=== PATIENT | female | born 2000 | race Caucasian/White ===

== ENCOUNTER 2024-07-05 19:55 | Emergency (ER) | payer MEDICAID, SELFPAY ==
[2024-07-05 20:18] VITALS: BP 108/68; PULSE 71; RESP 18; TEMP 36.8; O2SAT 99
--- NOTE | 2024-07-05 20:54 | ED.GENADULT ---
HPI - General Adult General Time Seen by Provider: 20:54 Date Seen: 07/05/24 Chief complaint: Nausea/Vomiting Stated complaint: 5 weeks , vomiting Time Seen by Provider: 07/05/24 20:53 Source: patient, family, RN notes reviewed and official court interpreter Mode of arrival: ambulatory Limitations: no limitations History of Present Illness HPI narrative: Rekha is a very sweet 23-year-old at approximately 7 weeks who comes to the emergency room for evaluation of vomiting. Rekha notes that she has been vomiting for approximately 2 weeks. However, today she has been vomiting throughout the day and has been unable to keep food or fluid down. She notes that she has discomfort in her stomach and shows this to be the epigastrium. She has not had fever or chills. She notes no dysuria hematuria or lower abdominal pain and has not had any vaginal bleeding. She is very excited for her 1st baby. She has not yet seen OB. She is hoping for some IV fluids. She is otherwise a healthy individual. Review of Systems Status of ROS: Reports: 10 or more systems reviewed and unremarkable except as noted in History and below Const: Denies: fever or chills ENMT: Denies: throat swelling, difficulty swallowing or nasal congestion Cardio: Denies: chest pain, swelling of feet/ankles, lightheadedness or shortness of breath with exertion Resp: Denies: shortness of breath or cough GI: Reports: abdominal pain, nausea and vomiting; Denies: diarrhea, constipation or difficulty swallowing : Denies: painful urination Musculo: Denies: back pain Neuro: Denies: headache Allergy/Immuno: Denies: throat swelling PFSH PFS Social History Smoking Status: Never smoker Do you use any of these nicotine containing products: None Second hand tobacco smoke exposure: No How often do you have a drink containing alcohol: never How often do you have six or more drinks on one occasion: Never AUDIT-C Alcohol total score: 0 Non-prescribed substance use: denies use service: No Exam Narrative: Exam Narrative: Rekha is alert and oriented. Initial interview with the assistance of an official court interpreter. External ears eyes nose clear. While her lips are dry she does have moist mucous membranes. She is speaking normally. Neck is supple. Heart with a regular rate and rhythm and lungs are clear bilaterally. Patient has some mild epigastric discomfort. No pain in the right upper quadrant or pelvic area lower abdomen with palpation. Const: Vital Signs, click to edit/add: Vital Signs - 24 hr 07/05/24 20:18 Temperature 98.2 F Pulse Rate [Pulse Oximeter] 71 Respiratory Rate 18 Blood Pressure [Ri ght Upper Arm] 108/68 Pulse Oximetry 99 Oxygen Delivery Me thod Room Air Documenting provider has reviewed patient's vital signs: yes Course Course ED Course: Given Rekha appearance I do wish to try oral Zofran and oral hydration. At this time there is a nationwide shortage of fluids. Patient is presenting here tonight with no evidence of tachycardia hypotension or toxicity. She agrees to this plan. Zofran 4 mg ODT is given. Would like her to wait 10 minutes and then try some fluids. Differential diagnosis with vomiting can be gastroenteritis although she has no fever chills recent ill contacts or diarrhea. Must also consider biliary colic but her pain is epigastric and not right upper quadrant. Again she has no fever. Will plan on labs IV insertion if she does not improve after oral Zofran. Reevaluation(s) Reevaluation #1: Patient successfully had 2 glasses of fluids as well as 2 popsicles. I then went and found some chips and Cheerios for her and she has been eating these without difficulty. Vital Signs Vital signs: Initial Vital Signs Temperature 98.2 F 07/05/24 20:18 Temperature Source Temporal Artery Scan 07/05/24 20:18 Pulse Rate 71 07/05/24 20:18 Pulse Rhythm Regular 07/05/24 20:18 Pulse Strength 3+ Normal 07/05/24 20:18 Respiratory Rate 18 07/05/24 20:18 Blood Pressure 108/68 07/05/24 20:18 Blood Pressure Mean 81 07/05/24 20:18 Blood Pressure Position Sitting 07/05/24 20:18 Pulse Oximetry 99 07/05/24 20:18 Oxygen Delivery Method Room Air 07/05/24 20:18 Vital Signs Temperature 98.2 F 07/05/24 20:18 Pulse Rate 71 07/05/24 20:18 Respiratory Rate 18 07/05/24 20:18 Blood Pressure 108/68 07/05/24 20:18 Pulse Oximetry 99 07/05/24 20:18 Oxygen Delivery Method Room Air 07/05/24 20:18 Temperature 98.2 F 07/05/24 20:18 Pulse Rate 71 07/05/24 20:18 Respiratory Rate 18 07/05/24 20:18 Blood Pressure 108/68 07/05/24 20:18 Pulse Oximetry 99 07/05/24 20:18 Oxygen Delivery Method Room Air 07/05/24 20:18 Medications Administered Medications: Discontinued Medications Generic Name Dose Route Start Last Admin Trade Name Fawn PRN Reason Stop Dose Admin Ondansetron HCl 4 mg 07/05/24 21:38 07/05/24 21:43 Ondansetron Odt 4 Mg Tab PO 07/05/24 21:39 4 mg ONCE ONE Administration Medical Decision Making MDM Narrative Medical decision making narrative: 1. Nausea vomiting in -patient remarkably improved after oral Zofran and fluids. Have created a prescription in [employer] for Zofran 4 mg ODT q.8 hours p.r.n. nausea or vomiting 10. Tonight we did use the will to note that her due date is February 20. She is very excited about this. I have asked her to try to push fluids and food as much as possible. It is important not to let her stomach it completely empty and I do suggest keeping cereal or crackers by her bedside. Of course should she have worsening symptoms she can return for further evaluation. Fortunately she is feeling much improved at this time is smiling as she is eating and drinking. 2. Disposition-home at this time. Return as needed. Discharge Plan Discharge Clinical Impression: Nausea and vomiting during Additional Instructions: Zofran may be used every 8 hours if needed for nausea. Do your best to not let your stomach be empty which seems to increase nausea and vomiting. Try to keep crackers or serial by the side of your bed. Try to eat a little bit all the time. Push fluids as much as possible. Return as needed Follow Up/Referrals: Aaliyah Gary MD [Staff Physician] - Stand Alone Forms: [employer] Info Instructions
[2024-07-05] MEDS: ONDANSETRON ODT 4 MG TAB PO (21:43)
== END 2024-07-05 22:52 | disposition home or self-care (01) ==
PROVIDERS: Emergency Provider Family Medicine
DX: O21.9 Vomiting of pregnancy, unspecified (principal); Z3A.01 Less than 8 weeks gestation of pregnancy
CPT/HCPCS: 99283; 99284; A9270

== ENCOUNTER 2024-07-17 21:30 | Emergency (ER) | payer MEDICAID, SELFPAY ==
[2024-07-17 21:46] VITALS: BP 112/75; PULSE 60; RESP 16; TEMP 36.7; O2SAT 99
--- NOTE | 2024-07-17 22:12 | ED.NAVMDI ---
HPI - Nausea/Vomiting/Diarrhea General Date Seen: 07/17/24 Chief complaint: Nausea/Vomiting Stated complaint: 7wks , zofran refill Time Seen by Provider: 07/17/24 21:33 Source: patient and family Mode of arrival: ambulatory Limitations: no limitations History of Present Illness HPI Narrative: This pleasant 23-year-old at approximately 8+ weeks gestation presents here with nausea vomiting she was seen almost 2 weeks ago here, given Zofran and run out of that, she says she has severe nausea vomiting if she is not taking it, she vomits up approximately 5 times a day. She describes unable to keep fluids down but is able this drink somewhat. She has some mild discomfort in her stomach, she notes with this. She is not throwing up any blood, she has had no vaginal bleeding, she denies any dysuria frequency so associated with this. She has not yet seen Ob but has an appointment on July 21. She describes herself as otherwise healthy on no chronic medications, MD elicited complaint: nausea and vomiting Related Data Previous Rx's ?Medication ?Instructions ?Recorded ondansetron 4 mg disintegrating 4 mg PO Q12H PRN nausea and 07/17/24 tablet vomiting 4 days #10 tabs Allergies Allergy/AdvReac Type Severity Reaction Status Date / Time No Known Drug Allergies Allergy Verified 07/16/24 13:45 Review of Systems Status of ROS: Reports: 10 or more systems reviewed and unremarkable except as noted in History and below [facility] Social History Smoking Status: Never smoker Do you use any of these nicotine containing products: None Second hand tobacco smoke exposure: No How often do you have a drink containing alcohol: never How often do you have six or more drinks on one occasion: Never AUDIT-C Alcohol total score: 0 Non-prescribed substance use: denies use service: No Exam Narrative: Exam Narrative: On examination in room 1 she is in no apparent distress she has normal vital signs. Her abdomen shows a non gravid abdomen, with absolutely no tenderness anywhere in her abdomen her bowel sounds are normal, there is no organomegaly, with the ultrasound I am able to say Tariq , with a heart rate of approximately 160. Within the uterus. She has a good window through her bladder noted. Const: Vital Signs, click to edit/add: Vital Signs - 24 hr 07/17/24 21:46 Temperature 98.0 F Pulse Rate [Left P ulse Oximeter] 60 Respiratory Rate 16 Blood Pressure [Ri ght Upper Arm] 112/75 Pulse Oximetry 99 Oxygen Delivery Me thod Room Air Documenting provider has reviewed patient's vital signs: yes Course Vital Signs Vital signs: Initial Vital Signs Temperature 98.0 F 07/17/24 21:46 Temperature Source Temporal Artery Scan 07/17/24 21:46 Pulse Rate 60 07/17/24 21:46 Pulse Rhythm Regular 07/17/24 21:46 Respiratory Rate 16 07/17/24 21:46 Blood Pressure 112/75 07/17/24 21:46 Blood Pressure Mean 87 07/17/24 21:46 Blood Pressure Position Sitting 07/17/24 21:46 Pulse Oximetry 99 07/17/24 21:46 Oxygen Delivery Method Room Air 07/17/24 21:46 Vital Signs Temperature 98.0 F 07/17/24 21:46 Pulse Rate 60 07/17/24 21:46 Respiratory Rate 16 07/17/24 21:46 Blood Pressure 112/75 07/17/24 21:46 Pulse Oximetry 99 07/17/24 21:46 Oxygen Delivery Method Room Air 07/17/24 21:46 Temperature 98.0 F 07/17/24 21:46 Pulse Rate 60 07/17/24 21:46 Respiratory Rate 16 07/17/24 21:46 Blood Pressure 112/75 07/17/24 21:46 Pulse Oximetry 99 07/17/24 21:46 Oxygen Delivery Method Room Air 07/17/24 21:46 Medications Administered Medications: Discontinued Medications Generic Name Dose Route Start Last Admin Trade Name Freq PRN Reason Stop Dose Admin Ondansetron HCl 4 mg 07/17/24 22:03 07/17/24 22:22 Ondansetron Odt 4 Mg Tab PO 07/17/24 22:04 4 mg ONCE ONE Administration MDM - Nausea/Vomiting/Diarrhea MDM Narrative Medical decision making narrative: Differential diagnosis includes but is not limited to viral gastroenteritis, drug food poisoning, pyloric stenosis, gastritis, pancreatitis, hepatitis, cholecystitis, appendicitis, bowel obstruction, hyperemesis, cyclic vomiting syndrome, bulimia nervosa, migraine headache, motion sickness and medication side effect. These include the life threatening complications of appendicitis, drug food poisoning and bowel obstruction. Medical Records Attestation: I reviewed the patient's medical records. Lab Data Attestation: I reviewed the patient's lab results. Labs: Lab Results 07/17/24 Range/Units 21:55 Urine Color Yellow (Yellow) Urine Appearance Cloudy A (Clear) Urine pH 7.0 (5.0-8.5) Ur Specific [place] 1.025 (1.000-1.030) Urine Protein Trace A (Negative) Urine Glucose (UA) Negative (Negative) Urine Ketones 2+ A (Negative) Urine Blood Negative (Negative) Urine Nitrite Negative (Negative) Urine Bilirubin Negative (Negative) Urine Urobilinogen 0.2 (0.2-1.0) Ur Leukocyte Esterase Negative (Negative) Urine RBC 0-2 (0-2) Urine WBC 2-5 (0-5) Ur Squamous Epith Cells None (None-Few) Amorphous Sediment Many A (None) Urine Bacteria Few A (None) Urine returned showing no evidence of infection, 2+ ketones were characteristic of the hyperemesis, she felt much better after she received the Zofran. Discharge Plan Discharge Clinical Impression: Nausea and vomiting during Patient Disposition: Home w/ Parent or Adult Condition: Stable Instructions: Nausea and Vomiting in (ED), Hyperemesis Gravidarum (ED) Additional Instructions: Home rest continue medications, prescription through instymeds given. Follow-up with OB. Return as needed for increasing abdominal pain vaginal bleeding other issue Prescriptions: New ondansetron 4 mg tablet,disintegrating 4 mg PO Q12H PRN (Reason: nausea and vomiting) 4 Days Qty: 10 0RF Follow Up/Referrals: Provider,Not a Local [Primary Care Provider] - Stand Alone Forms: How do you roll? Info Instructions
[2024-07-17 22:15] LABS: Appearance Urine Cloudy (Clear); Bilirubin Urine Negative (Negative); Blood Urine Negative (Negative); Color Urine Yellow (Yellow); Glucose Urine Negative (Negative); Ketones Urine 2+ (Negative); Leukocyte Esterase Urine Negative (Negative); Nitrite Urine Negative (Negative); Protein Urine Trace (Negative); Specific Gravity Urine 1.025 (1.000-1.030); Urobilinogen Urine 0.2 (0.2-1.0)
[2024-07-17] MEDS: ONDANSETRON ODT 4 MG TAB PO (22:22)
[2024-07-17 22:24] LABS: Amorphous Sediment Urine Many; Bacteria Urine Few; RBC Urine 0-2 (0-2)
== END 2024-07-17 22:34 | disposition home or self-care (01) ==
PROVIDERS: Emergency Provider Family Medicine
DX: R11.2 Nausea with vomiting, unspecified (principal); Z3A.08 8 weeks gestation of pregnancy
CPT/HCPCS: 81001; 87086; 99283; A9270

== ENCOUNTER 2024-07-21 07:16 | Outpatient (CLI) | payer MEDICAID, SELFPAY ==
--- NOTE | 2024-07-21 07:15 | US_ITS ---
Patient: SUSAN VENCES Facility:?[facility] Patient ID:?[id number] Site Patient ID:?[id number]. Site :?[id number] Study:?US-OB Pelvis Dating and Viability-07/21/2024 8:27:30 AM Ordering Physician:Candelaria Carmona Final Report: INDICATION: Check viability and dates TECHNIQUE: Transabdominal and transvaginal scanning was performed. Transvaginal scanning was performed to better evaluate the IUP and adnexa. Ovarian blood flow was evaluated with color-flow and pulsed Doppler. COMPARISON: None FINDINGS: There is a living IUP with gestational age of 9 weeks 3 days by LMP and 9 weeks by today`s crown-rump length. EDC based on today`s crown-rump length is 02/23/2025. The embryonic heart rate is measured at 181 beats per minute. The placenta is not yet formed. There appears to be a 1.6 x 1.2 x 0.9 cm subchorionic hemorrhage. The ovaries are normal in size and shape. The right ovary measures 2.9 x 2.0 x 2.0 cm and the left 2.4 x 2.4 x 1.8 cm. Ovarian blood flow is demonstrated with color-flow and pulsed Doppler. No adnexal mass or free fluid is apparent. IMPRESSION: 1. Living IUP with gestational age of 9 weeks by today`s crown-rump length and EDC of 02/23/2025. 2. Apparent 1.6 x 1.2 x 0.9 cm subchorionic hemorrhage. Dictated by Wesly Leonardo MD @ 07/21/2024 1:20:47 PM Signed by:?Wesly Leonardo MD @07/21/2024 1:20:47 PM (Electronic Signature)
== END 2024-07-21 07:17 | disposition home or self-care (01) ==
PROVIDERS: Visit Provider Registered Nurse
DX: Z34.91 Encounter for supervision of normal pregnancy, unspecified, first trimester (principal); O20.9 Hemorrhage in early pregnancy, unspecified; Z3A.09 9 weeks gestation of pregnancy
CPT/HCPCS: 76801; 76817; 76857; 83021; 86592; 86703; 86704; 86706; 86762; 86787; 86803; 86850; 86900; 86901; 87086; 87340; 87491; 87591; 88142; 96374; 99284; T1013; J2405; J7030

== ENCOUNTER 2024-07-21 09:06 | Outpatient (CLI) | payer MEDICAID, SELFPAY ==
[2024-07-21 13:22] LABS: Chlamydia DNA Amplified* NOT DETECTED (No Detected); GC DNA Amplified* NOT DETECTED (No Detected)
== END 2024-07-21 09:07 | disposition home or self-care (01) ==
PROVIDERS: Visit Provider Registered Nurse
DX: Z34.91 Encounter for supervision of normal pregnancy, unspecified, first trimester (principal); Z12.4 Encounter for screening for malignant neoplasm of cervix; Z3A.09 9 weeks gestation of pregnancy
CPT/HCPCS: 83021; 86592; 86703; 86704; 86706; 86762; 86787; 86803; 86850; 86900; 86901; 87086; 87340; 87491; 87591; 87624; 87625; 88141; 88142

== ENCOUNTER 2024-07-23 18:30 | Emergency (ER) | payer MEDICAID, SELFPAY ==
[2024-07-23 18:35] VITALS: BP 93/60; PULSE 68; RESP 16; TEMP 36.9; O2SAT 99
--- NOTE | 2024-07-23 18:53 | ED.NAVMDI ---
HPI - Nausea/Vomiting/Diarrhea General Chief complaint: Nausea/Vomiting Stated complaint: 2 mo , vomiting Time Seen by Provider: 07/23/24 18:41 History of Present Illness HPI Narrative: This 23-year-old female comes in reporting nausea and vomiting with some diffuse lower abdominal pain. She is 9 weeks and her nausea and vomiting seem to be related to her . She is not reporting any vaginal discharge. She is [place]-speaking but her friend is with her who interprets. They declined chemical supervisor services. Related Data Home Medications ?Medication ?Instructions ?Recorded ?Confirmed docosahexaenoic acid 200 mg mg PO 07/21/24 07/21/24 capsule ( DHA) Previous Rx's ?Medication ?Instructions ?Recorded ondansetron 4 mg disintegrating 4 mg PO Q12H PRN nausea and 07/17/24 tablet vomiting 4 days #10 tabs vitamin#30 30 mg iron-10 1 cap PO DAILY #90 caps 07/21/24 mg iron-folic acid 1 mg-omg3 capsule promethazine 25 mg tablet 12.5 - 25 mg (0.5 - 1 x 25 mg) PO 07/21/24 Q4-6H PRN nausea and vomiting #30 tabs Allergies Allergy/AdvReac Type Severity Reaction Status Date / Time No Known Drug Allergies Allergy Verified 07/21/24 08:29 Review of Systems Status of ROS: Reports: 10 or more systems reviewed and unremarkable except as noted in History and below Narrative: Constitutional: No fevers, no weight gain or loss. Eyes: No discharge. No vision changes. HENT: No congestion, no sore throat, no ear pain. Cardiovascular: No chest pain, no palpitations. Respiratory: No shortness of breath, no wheezes, no cough. Gastrointestinal: No diarrhea. Nausea and vomiting. Genitourinary: No dysuria, no hematuria. Musculoskeletal: Normal range of motion. Skin: No rashes, no pruritis. Neurological: No dizziness, weakness, sensory change, speech change. Endo/Heme/Allergies: No bruising or bleeding. No polydipsia. Pysch: no suicidality, no anxiety, no insomnia. All other systems reviewed and are negative. PFSH PFSH Social History Narrative: [place]-speaking What is your current living situation?: I presently have a place to live In the past 12 months, utilities in danger of being shut off: no In the past 12 mos, have been you worried that your food would run out before you had money to buy more?: never true In the past 12 mos, the food you bought just didn't last and you didn't have money to buy more?: never true Smoking Status: Never smoker Do you use any of these nicotine containing products: None Second hand tobacco smoke exposure: No How often do you have a drink containing alcohol: never How often do you have six or more drinks on one occasion: Never AUDIT-C Alcohol total score: 0 Non-prescribed substance use: denies use How often does anyone, including family, friends and others, physically hurt you: never How often does anyone, including family, friends and others, insult or talk down to you: never How often does anyone, including family, friends and others, threaten you with harm: never How often does anyone, including family, friends and others, scream or curse at you: never service: No Exam Narrative: Exam Narrative: Constitutional: Well-developed, well-nourished, no acute distress. HEENT: Normocephalic, atraumatic. Neck: Normal range of motion. Nontender. Supple. Heart: Regular. No murmurs. Normal rate. Intact distal pulses. Lungs: Clear to auscultation. No chest discomfort. No wheezes, rhonchi, or rales. Abdomen: Normal bowel sounds. No rebound tenderness. Mild tenderness in the lower abdomen. Genitalia: Deferred. Back: No midline tenderness. Normal range of motion. Extremities: Normal range of motion. No injury. Skin: Intact. No rash. Warm. No erythema or pallor. Neurologic: No altered sensation. No weakness. Alert and oriented. Psychiatric: No suicidality. No anxiety or depression. No insomnia. Nursing notes and vitals signs are reviewed. Const: Vital Signs, click to edit/add: Vital Signs - 24 hr 07/23/24 18:35 Temperature 98.4 F Pulse Rate [Pulse Oximeter] 68 Respiratory Rate 16 Blood Pressure [Ri ght Upper Arm] 93/60 Pulse Oximetry 99 Oxygen Delivery Me thod Room Air Course Vital Signs Vital signs: Initial Vital Signs Temperature 98.4 F 07/23/24 18:35 Temperature Source Temporal Artery Scan 07/23/24 18:35 Pulse Rate 68 07/23/24 18:35 Respiratory Rate 16 07/23/24 18:35 Blood Pressure 93/60 07/23/24 18:35 Blood Pressure Mean 71 07/23/24 18:35 Blood Pressure Position Sitting 07/23/24 18:35 Pulse Oximetry 99 07/23/24 18:35 Oxygen Delivery Method Room Air 07/23/24 18:35 Vital Signs Temperature 98.4 F 07/23/24 18:35 Pulse Rate 68 07/23/24 18:35 Respiratory Rate 16 07/23/24 18:35 Blood Pressure 93/60 07/23/24 18:35 Pulse Oximetry 99 07/23/24 18:35 Oxygen Delivery Method Room Air 07/23/24 18:35 Temperature 98.4 F 07/23/24 18:35 Pulse Rate 68 07/23/24 18:35 Respiratory Rate 16 07/23/24 18:35 Blood Pressure 93/60 07/23/24 18:35 Pulse Oximetry 99 07/23/24 18:35 Oxygen Delivery Method Room Air 07/23/24 18:35 Medications Administered Medications: Generic Name Dose Route Start Last Admin Trade Name Freq PRN Reason Stop Dose Admin Sodium Chloride 500 mls @ 500 mls/hr 07/23/24 18:51 07/23/24 19:07 0.9 % Sodium Chloride 500 Ml IV 07/23/24 19:50 500 mls/hr .Q1H ONE Administration Discontinued Medications Generic Name Dose Route Start Last Admin Trade Name Freq PRN Reason Stop Dose Admin Ondansetron HCl 4 mg 07/23/24 18:51 07/23/24 19:08 Ondansetron 2 Mg/Ml Inj IVP 07/23/24 18:52 4 mg ONCE ONE Administration MDM - Nausea/Vomiting/Diarrhea MDM Narrative Medical decision making narrative: This patient comes in with persistent nausea and vomiting related to . An IV was established where she received a L of normal saline and 4 mg of Zofran. This helped her feel better. She was reporting some lower abdominal pain but had normal exam and does not have any cramping or vaginal bleeding. She was reassured with bedside ultrasound views of her currently. She is okay to be discharged home. She states that she has both Zofran and Reglan to treat her nausea sym Discharge Plan Discharge Clinical Impression: Nausea and vomiting during Additional Instructions: Continue current plans. Use Zofran or Reglan as needed and directed for nausea symptoms. Follow up with MD return if worsening. Prescriptions: No Action DHA 200 mg capsule PO promethazine 25 mg tablet 12.5 - 25 mg PO Q4-6H PRN (Reason: nausea and vomiting) Qty: 30 1RF PNV #[id number] 30 mg iron-10 mg iron-1 mg capsule 1 cap PO DAILY Qty: 90 3RF ondansetron 4 mg tablet,disintegrating 4 mg PO Q12H PRN (Reason: nausea and vomiting) 4 Days Qty: 10 0RF Follow Up/Referrals: Provider,Not a Local [Primary Care Provider] - Procedures Ultrasound Other exam #1: Anatomical areas examined: at 9 weeks gestation. Indications: Abdominal pain Exam type: focused emergency ultrasound Description/findings: intrauterine gestation at 9 weeks Impression: normal .
[2024-07-23] MEDS: 0.9 % SODIUM CHLORIDE 500 ML 500 ML IV (19:07)
[2024-07-23] MEDS: ONDANSETRON 2 MG/ML inj 4 MG IVP (19:08)
[2024-07-23 19:47] VITALS: BP 101/60; PULSE 62; RESP 16
== END 2024-07-23 19:47 | disposition home or self-care (01) ==
LOC: ED 18:56
PROVIDERS: Emergency Provider Emergency Medicine Emergency Medical Services
DX: O21.9 Vomiting of pregnancy, unspecified (principal); Z3A.09 9 weeks gestation of pregnancy
CPT/HCPCS: 76857; 96374; 99284; J2405; J7030

== ENCOUNTER 2024-07-29 20:13 | Emergency (ER) | payer MEDICAID, SELFPAY ==
[2024-07-29 20:28] VITALS: BP 120/68; PULSE 87; RESP 18; TEMP 36.8; O2SAT 97; BMI 23.0
--- NOTE | 2024-07-29 20:41 | ED_ITS ---
HPI - General Adult General Chief complaint: Nausea/Vomiting Stated complaint: vomiting Time Seen by Provider: 07/29/24 20:41 History of Present Illness HPI narrative: Patient here with nausea and vomiting all day today. Took one dose of Zofran PO this morning. Seen here before several times for this. Patient seen by OB here per her report. 23-year-old young woman presenting to the emergency department with concern of vomiting in . She is nearly 10 weeks and has daily nausea and vomiting. Worse today. She did take 1 Zofran over 12 hours ago. Has not been taking regular doxylamine or pyridoxine. Was also prescribed promethazine but that she feels this makes her worse and tired I think. She does take some saltine crackers before she gets up in the morning. Does have acidic stomach treating with Tums. She just is feeling increasingly weak. Mom here requesting that she receive another IV. Rekha would appreciate this as well. She has not had any bleeding. Has experienced a little bit of cramping. Review of records shows frequent visits beginning 2 weeks ago. Related Data Home Medications ?Medication ?Instructions ?Recorded ?Confirmed docosahexaenoic acid 200 mg mg PO 07/21/24 07/21/24 capsule ( DHA) Previous Rx's ?Medication ?Instructions ?Recorded ondansetron 4 mg disintegrating 4 mg PO Q12H PRN nausea and 07/17/24 tablet vomiting 4 days #10 tabs vitamin#30 30 mg iron-10 1 cap PO DAILY #90 caps 07/21/24 mg iron-folic acid 1 mg-omg3 capsule promethazine 25 mg tablet 12.5 - 25 mg (0.5 - 1 x 25 mg) PO 07/21/24 Q4-6H PRN nausea and vomiting #30 tabs doxylamine succinate 25 mg tablet 12.5 - 25 mg (0.5 - 1 x 25 mg) PO 07/29/24 .daily-bid #30 tabs metoclopramide HCl 10 mg tablet 10 mg PO Q6H PRN nausea and 07/29/24 (Reglan) vomiting #30 tabs pyridoxine (vitamin B6) 25 mg 25 mg PO TID #30 tabs 07/29/24 tablet Allergies Allergy/AdvReac Type Severity Reaction Status Date / Time No Known Drug Allergies Allergy Verified 11/20/24 08:29 Review of Systems Status of ROS: Reports: 6 or more systems reviewed and unremarkable except as noted in History and below PFSH PFSH Social History Narrative: [place]speaking What is your current living situation?: I presently have a place to live In the past 12 months, utilities in danger of being shut off: no In the past 12 mos, have been you worried that your food would run out before you had money to buy more?: never true In the past 12 mos, the food you bought just didn't last and you didn't have money to buy more?: never true Smoking Status: Never smoker Do you use any of these nicotine containing products: None Second hand tobacco smoke exposure: No How often do you have a drink containing alcohol: never How often do you have six or more drinks on one occasion: Never AUDIT-C Alcohol total score: 0 Non-prescribed substance use: denies use How often does anyone, including family, friends and others, physically hurt you : never How often does anyone, including family, friends and others, insult or talk down to you: never How often does anyone, including family, friends and others, threaten you with harm: never How often does anyone, including family, friends and others, scream or curse at you: never service: No Exam Narrative: Exam Narrative: Pleasant. Alert. Breathing easily. Mouth is moist. Skin is warm and dry. Is well-perfused. Abdomen is soft with some tenderness in the epigastrium and above the umbilicus. Heart is in a regular rate and rhythm. Lungs appear to be clear. Const: Vital Signs, click to edit/add: Vital Signs - 24 hr 07/29/24 20:28 Temperature 98.2 F Pulse Rate [Pulse Oximeter] 87 Respiratory Rate 18 Blood Pressure [Ri ght Upper Arm] 120/68 Pulse Oximetry 97 Oxygen Delivery Me thod Room Air Documenting provider has reviewed patient's vital signs: yes Course Vital Signs Vital signs: Initial Vital Signs Temperature 98.2 F 07/29/24 20:28 Temperature Source Temporal Artery Scan 07/29/24 20:28 Pulse Rate 87 07/29/24 20:28 Pulse Rhythm Regular 07/29/24 20:28 Respiratory Rate 18 07/29/24 20:28 Blood Pressure 120/68 07/29/24 20:28 Blood Pressure Mean 85 07/29/24 20:28 Blood Pressure Position Sitting 07/29/24 20:28 Pulse Oximetry 97 07/29/24 20:28 Oxygen Delivery Method Room Air 07/29/24 20:28 Vital Signs Temperature 98.2 F 07/29/24 20:28 Pulse Rate 87 07/29/24 20:28 Respiratory Rate 18 07/29/24 20:28 Blood Pressure 120/68 07/29/24 20:28 Pulse Oximetry 97 07/29/24 20:28 Oxygen Delivery Method Room Air 07/29/24 20:28 Temperature 98.2 F 07/29/24 20:28 Pulse Rate 87 07/29/24 20:28 Respiratory Rate 18 07/29/24 20:28 Blood Pressure 120/68 07/29/24 20:28 Pulse Oximetry 97 07/29/24 20:28 Oxygen Delivery Method Room Air 07/29/24 20:28 Medications Administered Medications: Discontinued Medications Generic Name Dose Route Start Last Admin Trade Name Eliseoq PRN Reason Stop Dose Admin Sodium Chloride 500 mls @ 1,200 mls/hr 07/29/24 21:59 07/29/24 22:22 0.9 % Sodium Chloride 500 Ml IV 07/29/24 22:23 Infused .Q25M ONE Infusion Sodium Chloride 500 mls @ 1,200 mls/hr 07/29/24 21:59 07/29/24 22:24 0.9 % Sodium Chloride 500 Ml IV 07/29/24 22:23 Infused .Q25M ONE Infusion Lidocaine/Aluminum/Magnesium/Simeth 30 ml 07/29/24 20:55 07/29/24 21:02 Gi Cocktail (Visc Lido/Antacid) 30 Ml PO 07/29/24 20:56 30 ml ONCE ONE Administration Ondansetron HCl 4 mg 07/29/24 20:55 07/29/24 21:01 Ondansetron Odt 4 Mg Tab PO 07/29/24 20:56 4 mg ONCE ONE Administration Medical Decision Making MDM Narrative Medical decision making narrative: Vitals suggest that is keeping up. She has been feeling lightheaded. I would like to try oral challenge before moving on to IV. Could certainly dose Zofran at least more regularly. Might try GI cocktail following Zofran and then oral fluid challenge. Mom is concerned that needs an IV with vitamins in it. I pointed out that there are vitamins in the juice and numerous options of potential oral intake. Rekha is able to tolerate small amount of juice. Rekha still feels she has not cleared nausea. And would like IV fluids. IVs established and receives normal saline total of 1 L. On reassessment is feeling better. Will need to take medication regularly to deal with this nausea. This is delineated and discharge instructions. Reviewed again recommendations from last clinic visit. See patient discharge plan for further discussion Please continue to eat a little something even before you lift your head from the pillow in the morning. Try to eat small amounts of food and regularly sip on liquid throughout the day. Straight water on an empty stomach can be uncomfortable. Consider diluting juices. Soup broths, rice, applesauce, toast. Over the next 2 days I would take your Zofran regularly 2-3 times a day regardless of how you feel. I am also prescribing Reglan which you might try for nausea/vomiting. I understand that the promethazine does not make you feel well. Nahomy candies or chews can be helpful with nausea. Recommendations at your last clinic visit were to take doxylamine twice daily or maybe at least in the evening as it can be a little sedating. This medicine is also available [id number]. Recommendations were also to take vitamin B6 also known pyridoxine 2-3 times daily as well. This is also available [id number]. Try to also continue to take your vitamins. I think it is important that you meet with your healthcare provider/OBGYN to discuss this nausea/vomiting again and to make a plan for how to manage your fluids. Contin?e comiendo algo incluso antes de levantar la ozzie de la almohada por la ma?noah. Intente comer mason?as cantidades de alimentos y beber l?quidos con regularidad christopher el d?a. El agua frederic con el est?saarh vac?o puede resultar inc?moda. Considere diluir los jugos. Caldos, arroz, pur? de manzana, tostadas. Christopher los pr?ximos 2 d?as, best?a Zofran regularmente 2 o 3 veces al d?a, independientemente de c?mo se sienta. Tambi?n le estoy recetando Reglan, que puede probar para las n?useas y los v?mitos. Entiendo que la prometazina no le hace sentir abram. Los caramelos o masticables de jengibre pueden ser ?tiles para las n?useas. Las recomendaciones en lyman ?ltima visita a la cl?gabo fueron best doxilamina dos veces al d?a o tom vez al menos por la noche, ya que puede ser un poco sedante. Blank medicamento tambi?n est? disponible sin receta. Tambi?n se recomendaron best vitamina B6, tambi?n conocida wicho piridoxina, 2 o 3 veces al d?a. Esta tambi?n est? disponible sin receta. Intente tambi?n seguir tomando jose vitaminas prenatales. Creo que es importante que te re?lexii con tu proveedor de atenci?n m?dica/ginec?logo para hablar nuevamente sobre las n?useas/v?mitos y hacer un plan sobre c?mo controlar tus l?quidos. Medical Records Medical records reviewed: Yes I reviewed the patient's medical records Discharge Plan Discharge Clinical Impression: Vomiting during Patient Disposition: Home w/ Parent or Adult Condition: Improved Additional Instructions: Please continue to eat a little something even before you lift your head from the pillow in the morning. Try to eat small amounts of food and regularly sip on liquid throughout the day. Straight water on an empty stomach can be uncomfortable. Consider diluting juices. Soup broths, rice, applesauce, toast. Over the next 2 days I would take your Zofran regularly 2-3 times a day regardless of how you feel. I am also prescribing Reglan which you might try for nausea/vomiting. I understand that the promethazine does not make you feel well. Nahomy candies or chews can be helpful with nausea. Recommendations at your last clinic visit were to take doxylamine twice daily or maybe at least in the evening as it can be a little sedating. This medicine is also available [id number]. Recommendations were also to take vitamin B6 also known pyridoxine 2-3 times daily as well. This is also available [id number]. Try to also continue to take your vitamins. I think it is important that you meet with your healthcare provider/OBGYN to discuss this nausea/vomiting again and to make a plan for how to manage your fluids. Contin?e comiendo algo incluso antes de levantar la ozzie de la almohada por la ma?noah. Intente comer mason?as cantidades de alimentos y beber l?quidos con regularidad christopher el d?a. El agua frederic con el est?sarah vac?o puede resultar inc?moda. Considere diluir los jugos. Caldos, arroz, pur? de manzana, tostadas. Christopher los pr?ximos 2 d?as, best?a Zofran regularmente 2 o 3 veces al d?a, independientemente de c?mo se sienta. Tambi?n le estoy recetando Reglan, que puede probar para las n?useas y los v?mitos. Entiendo que la prometazina no le hace sentir abram. Los caramelos o masticables de jengibre pueden ser ?tiles para las n?useas. Las recomendaciones en lyman ?ltima visita a la cl?gabo fueron best doxilamina dos veces al d?a o tom vez al menos por la noche, ya que puede ser un poco sedante. Blank medicamento tambi?n est? disponible sin receta. Tambi?n se recomendaron best vitamina B6, tambi?n conocida wicho piridoxina, 2 o 3 veces al d?a. Esta tambi?n est? disponible sin receta. Intente tambi?n seguir tomando jose vitaminas prenatales. Creo que es importante que te re?lexii con tu proveedor de atenci?n m?dica/ginec?logo para hablar nuevamente sobre las n?useas/v?mitos y hacer un plan sobre c?mo controlar tus l?quidos. Activity Level: No Restrictions Discharge Diet: Regular Prescriptions: New pyridoxine (vitamin B6) 25 mg tablet 25 mg PO TID Qty: 30 0RF doxylamine succinate 25 mg tablet 12.5 - 25 mg PO .daily-bid Qty: 30 0RF metoclopramide HCl [Reglan] 10 mg tablet 10 mg PO Q6H PRN (Reason: nausea and vomiting) Qty: 30 0RF No Action DHA 200 mg capsule PO promethazine 25 mg tablet 12.5 - 25 mg PO Q4-6H PRN (Reason: nausea and vomiting) Qty: 30 1RF PNV #[id number] 30 mg iron-10 mg iron-1 mg capsule 1 cap PO DAILY Qty: 90 3RF ondansetron 4 mg tablet,disintegrating 4 mg PO Q12H PRN (Reason: nausea and vomiting) 4 Days Qty: 10 0RF Follow Up/Referrals: Provider,Not a Local [Primary Care Provider] - Stand Alone Forms: [facility] Instructions
[2024-07-29] MEDS: ONDANSETRON ODT 4 MG TAB PO (21:01)
[2024-07-29] MEDS: GI COCKTAIL (VISC LIDO/ANTACID) 30 ML PO (21:02)
[2024-07-29] MEDS: 0.9 % SODIUM CHLORIDE 500 ML 500 ML 1200 ML IV ×2 (22:11→22:14)
== END 2024-07-29 23:15 | disposition home or self-care (01) ==
PROVIDERS: Emergency Provider Family Medicine
DX: O21.9 Vomiting of pregnancy, unspecified (principal); Z3A.10 10 weeks gestation of pregnancy
CPT/HCPCS: 99283; 99284; A9270; J7030

== ENCOUNTER 2024-08-16 23:57 | Emergency (ER) | payer MEDICAID, SELFPAY ==
[2024-08-17 01:06] VITALS: BP 104/65; PULSE 102; RESP 20; TEMP 37.2; O2SAT 98
[2024-08-17] MEDS: 0.9 % SODIUM CHLORIDE 1000 ml 1,000 ML 2000 ML IV (03:33)
[2024-08-17] MEDS: ONDANSETRON 2 MG/ML inj 4 MG IVP (03:34)
--- NOTE | 2024-08-17 03:36 | ED_ITS ---
HPI - General Adult General Chief complaint: Nausea/Vomiting Stated complaint: 12wks preg/vomiting Time Seen by Provider: 08/17/24 00:04 Source: patient and family Limitations: language barrier (Video equipment operator wage hand used) History of Present Illness HPI narrative: Patient presents for her 4th ED visit in the last month for nausea and vomiting in . She has been experiencing this for the past 4 weeks. Saw her OB provider initially 4 weeks ago. It looks as though she was prescribed Zofran, Compazine and Reglan. Reports that the Reglan and Compazine make her too tired. The Zofran is not effective. He has not tried calling her OB office to get more instructions or to arrange IV fluid or sooner triage. She does have an appointment coming up in 2 days as well. No fever. No vaginal bleeding or cramping. She is concerned that she is dehydrated and her mother accompanies her and is very concerned that she could be dehydrated as well. Has tried taking Zofran twice daily, last dose was more than 8 hours prior to presenta tion. We were extremely busy in the ED tonight and it does take about 3 hours before she is able to be seen. Does not appears though she is currently using an antacid. She states that her past medical history is benign, no major long-term health problems, initial OB no reviewed. Prior ED visits reviewed. ROS notable for the nausea and vomiting as stated above, otherwise denies times 12 systems. Related Data Home Medications ?Medication ?Instructions ?Recorded ?Confirmed docosahexaenoic acid 200 mg mg PO 07/21/24 07/21/24 capsule ( DHA) vit no.95-ferrous 1 tab PO DAILY 08/17/24 08/17/24 fumarate 28 mg-folic acid 800 mcg tablet () Previous Rx's ?Medication ?Instructions ?Recorded ondansetron 4 mg disintegrating 4 mg PO Q12H PRN nausea and 07/17/24 tablet vomiting 4 days #10 tabs vitamin#30 30 mg iron-10 1 cap PO DAILY #90 caps 07/21/24 mg iron-folic acid 1 mg-omg3 capsule promethazine 25 mg tablet 12.5 - 25 mg (0.5 - 1 x 25 mg) PO 07/21/24 Q4-6H PRN nausea and vomiting #30 tabs doxylamine succinate 25 mg tablet 12.5 - 25 mg (0.5 - 1 x 25 mg) PO 07/29/24 .daily-bid #30 tabs metoclopramide HCl 10 mg tablet 10 mg PO Q6H PRN nausea and 07/29/24 (Reglan) vomiting #30 tabs pyridoxine (vitamin B6) 25 mg 25 mg PO TID #30 tabs 07/29/24 tablet Allergies Allergy/AdvReac Type Severity Reaction Status Date / Time No Known Drug Allergies Allergy Verified 08/17/24 01:06 [facility] Social History Narrative: Bangladeshi-speaking What is your current living situation?: I presently have a place to live In the past 12 months, utilities in danger of being shut off: no In the past 12 mos, have been you worried that your food would run out before you had money to buy more?: never true In the past 12 mos, the food you bought just didn't last and you didn't have money to buy more?: never true Smoking Status: Never smoker Do you use any of these nicotine containing products: None Second hand tobacco smoke exposure: No How often do you have a drink containing alcohol: never How often do you have six or more drinks on one occasion: Never AUDIT-C Alcohol total score: 0 Non-prescribed substance use: denies use How often does anyone, including family, friends and others, physically hurt you : never How often does anyone, including family, friends and others, insult or talk down to you: never How often does anyone, including family, friends and others, threaten you with harm: never How often does anyone, including family, friends and others, scream or curse at you: never service: No Exam Const: Vital Signs, click to edit/add: Vital Signs - 24 hr 08/17/24 01:06 Temperature 98.9 F Pulse Rate [Pulse Oximeter] 102 H Respiratory Rate 20 Blood Pressure [Ri ght Upper Arm] 104/65 Pulse Oximetry 98 Oxygen Delivery Me thod Room Air Documenting provider has reviewed patient's vital signs: yes Common normals: no apparent distress Other: Lips are dry, cracked. HENMT: Common normals: normocephalic Head and scalp: normocephalic Other: Dry membranes and cracked lips Eye: Common normals: conjunctivae normal General eye: normal appearance of both eyes Conjunctiva: conjunctiva(e) normal Resp: Common normals: normal respiratory effort, no use of accessory muscles and clear to auscultation bilaterally Auscultation: clear to auscultation bilaterally Cardio: Common normals: regular rate, regular rhythm, S1 normal heart sound, S2 normal heart sound and no murmurs Rate: regular rate Rhythm: regular rhythm Heart sounds: S1 normal and S2 normal Extremity: Common normals: normal to inspection and normal capillary refill Neuro: Speech: speech normal Motor exam: no movement abnormalities noted Psych: Attitude: calm Activity/motor behavior: appropriate eye contact Insight: fair Judgement: fair Skin: Common normals: no rashes or lesions noted General skin exam: no rashes or lesions noted Course Course ED Course: 23-year-old female with persistent nausea and vomiting in . Counseled patient and mother about appropriate use of the emergency department, need to partner with her Ob provider and set up a better plan for fluid maintenance if this is needed. Unfortunately, there are not any other medications that I can offer that are likely to be very effective for her. Will give 1 L of normal saline, IV Zofran and oral famotidine. Second IV will be given if urinalysis shows heavy ketones. Patient is to keep her follow-up in 2 days with her Ob provider and discuss a better plan for fluid management if needed at that time. Reevaluation(s) Time of Reevaluation #1: 07:02 Reevaluation #1: Patient given 2 total L of fluid and was able to void. 4+ ketones noted. Patient has not had any further vomiting here in the ED. She tolerated the Zofran well. She tolerated the famotidine well. She is requesting to leave because her mother needs to get to work. She has been here very long time. We have had very high acuity patients in the ED overnight and limited availability for other resources to care for her more quickly. I would typically give more fluid and a trial of nutrition since she had some any ketones but she is requesting to leave and does appear to be tolerating things better at this point. I will respect her wishes and discharge her from the ED per her request. Vital Signs Vital signs: Initial Vital Signs Temperature 98.9 F 08/17/24 01:06 Temperature Source Temporal Artery Scan 08/17/24 01:06 Pulse Rate 102 H 08/17/24 01:06 Pulse Rhythm Regular 08/17/24 01:06 Pulse Strength 3+ Normal 08/17/24 01:06 Respiratory Rate 20 08/17/24 01:06 Blood Pressure 104/65 08/17/24 01:06 Blood Pressure Mean 78 08/17/24 01:06 Blood Pressure Position Sitting 08/17/24 01:06 Pulse Oximetry 98 08/17/24 01:06 Oxygen Delivery Method Room Air 08/17/24 01:06 Vital Signs Temperature 98.9 F 08/17/24 01:06 Pulse Rate 102 H 08/17/24 01:06 Respiratory Rate 20 08/17/24 01:06 Blood Pressure 104/65 08/17/24 01:06 Pulse Oximetry 98 08/17/24 01:06 Oxygen Delivery Method Room Air 08/17/24 01:06 Temperature 98.9 F 08/17/24 01:06 Pulse Rate 102 H 08/17/24 01:06 Respiratory Rate 20 08/17/24 01:06 Blood Pressure 104/65 08/17/24 01:06 Pulse Oximetry 98 08/17/24 01:06 Oxygen Delivery Method Room Air 08/17/24 01:06 Medications Administered Medications: Discontinued Medications Generic Name Dose Route Start Last Admin Trade Name Freq PRN Reason Stop Dose Admin Famotidine 20 mg 08/17/24 03:38 08/17/24 04:20 Famotidine 20 Mg Tablet PO 08/17/24 03:39 20 mg ONCE ONE Administration Sodium Chloride 1,000 mls @ 2,000 mls/hr 08/17/24 02:58 08/17/24 04:20 0.9 % Sodium Chloride 1000 Ml IV 08/17/24 03:27 Infused .Q30M LETY Infusion Lactated Ringer's 1,000 mls @ 2,000 mls/hr 08/17/24 04:07 08/17/24 05:50 Lactated Ringers 1000 Ml IV 08/17/24 04:36 Infused .Q30M ONE Infusion Ondansetron HCl 4 mg 08/17/24 03:07 08/17/24 03:34 Ondansetron 2 Mg/Ml Inj IVP 08/17/24 03:08 4 mg ONCE ONE Administration Medical Decision Making Lab Data Lab results reviewed: Yes I reviewed the patient's lab results Labs: Lab Results 08/17/24 Range/Units 06:35 Urine Color Yellow (Yellow) Urine Appearance Clear (Clear) Urine pH 7.0 (5.0-8.5) Ur Specific [place] 1.025 (1.000-1.030) Urine Protein Negative (Negative) Urine Glucose (UA) Negative (Negative) Urine Ketones 4+ A (Negative) Urine Blood Negative (Negative) Urine Nitrite Negative (Negative) Urine Bilirubin Negative (Negative) Urine Urobilinogen 0.2 (0.2-1.0) Ur Leukocyte Esterase Negative (Negative) Discharge Plan Discharge Clinical Impression: Nausea and vomiting during Patient Disposition: Home w/ Parent or Adult Condition: Stable Instructions: Nausea and Vomiting in (ED) Additional Instructions: Unfortunately, nausea and vomiting in is common. You are likely to continue having troubles with this. Please continue use of the Zofran twice daily automatically even if you feel like you do not need it. I would also like for you to add in famotidine which is an [id number] antacid medication every night, 30 minutes before bed. It is important that you eat more frequently through the day, smaller meals. I recommend things like crackers, toast and other small, easily digestible foods. Aim for 5 snacks or small meals per day. I am sorry that care for this type of thing takes a long time in the emergency department. It is important that you partner with your OB doctor for a better plan in managing your nausea, vomiting and dehydration. Please discuss this with her at your follow-up appointment in 2 days. This is her 4th emergency room visit this month. I know this must be frustrating for you. Please keep in close contact with the OB department at how to better manage your symptoms and a plan for IV fluids if this is needed. Often, the weight is much longer when you come in late at night like this. Thankfully, there are no signs of any emergent condition today. Continue trying to push fluids as best you are able. Lamentablemente, las n?useas y los v?mitos jimmy el embarazo son comunes. Es probable que contin?es teniendo problemas con esto. Contin?a usando Zofran dos veces al d?a autom?ticamente, incluso si sientes que no lo necesitas. Tambi?n me gustar?a que agregaras famotidina, que es un medicamento anti?cido de venta daisy, todas las noches, 30 minutos antes de acostarte. Es importante que comas con m?s frecuencia jimmy el d?a, comidas m?s mason?as. Recomiendo cosas wicho galletas saladas, tostadas y otros alimentos mason?os y de f?cil digesti?n. Intenta comer 5 bocadillos o comidas mason?as por d?a. Lamento que la atenci?n para jay tipo de cosas tome mucho tiempo en el departamento de emergencias. Es importante que te asocies con tu m?dico obstetra para tener un mejor plan para controlar tus n?useas, v?mitos y deshidrataci?n. Habla sobre esto con ming en tu sonny de seguimiento en 2 d?as. Esta es lyman cuarta visita a la lokesh de emergencias jay mes. S? que esto debe ser frustrante para ti. Mantente en estrecho contacto con el departamento de obstetricia para saber c?mo controlar mejor tus s?ntomas y un plan para l?quidos intravenosos si es necesario. A menudo, el peso es mucho mayor cuando llegas tarde por la noche wicho en jay jack. Afortunadamente, hoy no hay signos de ninguna afecci?n de emergencia. Sigue intentando ingerir l? quidos lo mejor que puedas. Activity Level: No Restrictions Discharge Diet: Regular Prescriptions: No Action DHA 200 mg capsule PO promethazine 25 mg tablet 12.5 - 25 mg PO Q4-6H PRN (Reason: nausea and vomiting) Qty: 30 1RF PNV #[id number] acid-omega3 30 mg iron-10 mg iron-1 mg capsule 1 cap PO DAILY Qty: 90 3RF pyridoxine (vitamin B6) 25 mg tablet 25 mg PO TID Qty: 30 0RF doxylamine succinate 25 mg tablet 12.5 - 25 mg PO .daily-bid Qty: 30 0RF metoclopramide HCl [Reglan] 10 mg tablet 10 mg PO Q6H PRN (Reason: nausea and vomiting) Qty: 30 0RF Patient Comments: I have this but I dont take it because it makes me super sleepy ondansetron 4 mg tablet,disintegrating 4 mg PO Q12H PRN (Reason: nausea and vomiting) 4 Days Qty: 10 0RF PNV cmb#95-ferrous fumarate-FA [] 28 mg iron- 800 mcg tablet 1 tab PO DAILY Follow Up/Referrals: Provider,Not a Local [Primary Care Provider] - Stand Alone Forms: [facility] Info Instructions
[2024-08-17] MEDS: LACTATED RINGERS 1000 ML 1,000 ML 2000 ML IV (04:11)
[2024-08-17] MEDS: FAMOTIDINE 20 MG TABLET PO (04:20)
[2024-08-17 06:47] LABS: Appearance Urine Clear (Clear); Bilirubin Urine Negative (Negative); Blood Urine Negative (Negative); Color Urine Yellow (Yellow); Glucose Urine Negative (Negative); Ketones Urine 4+ (Negative); Leukocyte Esterase Urine Negative (Negative); Nitrite Urine Negative (Negative); Protein Urine Negative (Negative); Specific Gravity Urine 1.025 (1.000-1.030); Urobilinogen Urine 0.2 (0.2-1.0)
== END 2024-08-17 07:17 | disposition home or self-care (01) ==
PROVIDERS: Emergency Provider Family Medicine
DX: R11.2 Nausea with vomiting, unspecified (principal); Z3A.12 12 weeks gestation of pregnancy
CPT/HCPCS: 81003; 96374; 99283; A9270; J2405; J7030; J7120

== ENCOUNTER 2024-08-19 14:11 | Outpatient (CLI) | payer MEDICAID, SELFPAY | END 2024-08-19 14:12 | disposition home or self-care (01) | PROVIDERS: Visit Provider Advanced Practice Midwife | DX: R11.10 Vomiting, unspecified (principal); R82.90 Unspecified abnormal findings in urine | CPT/HCPCS: 80053; 87086 ==

== ENCOUNTER 2024-08-28 16:45 | Emergency (ER) | payer MEDICAID, SELFPAY ==
[2024-08-28 17:10] VITALS: BP 98/62; PULSE 77; RESP 18; TEMP 36.8; O2SAT 98; BMI 18.9
--- NOTE | 2024-08-28 17:28 | ED.NAVMDI ---
HPI - Nausea/Vomiting/Diarrhea General Time Seen by Provider: 17:28 Date Seen: 08/28/24 Chief complaint: Nausea/Vomiting Stated complaint: 14 weeks , nausea, lethargy Time Seen by Provider: 08/28/24 17:27 Source: patient and RN notes reviewed Mode of arrival: ambulatory Limitations: no limitations History of Present Illness HPI Narrative: 23-year-old 14+ 6 by LMP presents with nausea vomiting. This been ongoing problem for several weeks. She Zofran, Compazine, Reglan at home but feels like they do not help very much. Denies diarrhea, has a couple of weeks lower abdominal for the last couple of weeks, no movement yet, no vaginal bleeding or discharge. No constipation or diarrhea. No fevers, no urinary symptoms. Related Data Home Medications ?Medication ?Instructions ?Recorded ?Confirmed docosahexaenoic acid 200 mg mg PO 07/21/24 08/26/24 capsule ( DHA) vit no.95-ferrous 1 tab PO DAILY 08/17/24 08/26/24 fumarate 28 mg-folic acid 800 mcg tablet () Previous Rx's ?Medication ?Instructions ?Recorded vitamin#30 30 mg iron-10 1 cap PO DAILY #90 caps 07/21/24 mg iron-folic acid 1 mg-omg3 capsule doxylamine succinate 25 mg tablet 12.5 - 25 mg (0.5 - 1 x 25 mg) PO 07/29/24 .daily-bid #30 tabs metoclopramide HCl 10 mg tablet 10 mg PO Q6H PRN nausea and 07/29/24 (Reglan) vomiting #30 tabs pyridoxine (vitamin B6) 25 mg 25 mg PO TID #30 tabs 07/29/24 tablet docusate sodium 100 mg capsule 100 mg PO QDAY constipation #90 08/19/24 (Colace) caps doxylamine succinate 25 mg tablet 25 mg PO QHS PRN nausea and 08/19/24 (Unisom (doxylamine)) vomiting #90 tabs omeprazole 20 mg capsule,delayed 20 mg PO QDAY #90 caps 08/19/24 release ondansetron HCl 4 mg tablet 4 mg PO Q6H PRN nausea and 08/19/24 vomiting #30 tabs Allergies Allergy/AdvReac Type Severity Reaction Status Date / Time No Known Drug Allergies Allergy Verified 08/26/24 10:22 [facility] Social History Narrative: Trinidadian-speaking What is your current living situation?: I presently have a place to live In the past 12 months, utilities in danger of being shut off: no In past 12 months, lack of transportation kept you from medical appts, meetings, work, or getting things needed for daily living: no In the past 12 mos, have been you worried that your food would run out before you had money to buy more?: never true In the past 12 mos, the food you bought just didn't last and you didn't have money to buy more?: never true Smoking Status: Never smoker Do you use any of these nicotine containing products: None Second hand tobacco smoke exposure: No How often do you have a drink containing alcohol: never How often do you have six or more drinks on one occasion: Never AUDIT-C Alcohol total score: 0 Non-prescribed substance use: denies use How often does anyone, including family, friends and others, physically hurt you: never How often does anyone, including family, friends and others, insult or talk down to you: never How often does anyone, including family, friends and others, threaten you with harm: never How often does anyone, including family, friends and others, scream or curse at you: never service: No Exam Narrative: Exam Narrative: General: Well-developed and well-nourished, no acute distress Head: Atraumatic and normocephalic Eyes: Pupils are equal reactive, extraocular motions intact, conjunctiva clear ENT: External nose and ears are normal, posterior pharynx without erythema or exudate Neck: No midline cervical tenderness, full spontaneous range of motion the neck, trachea midline, no adenopathy Heart: Regular rate and rhythm no murmurs or thrills Lungs: Clear to auscultation bilaterally without wheezes or crackles Abdomen: Soft, nontender, nondistended with active bowel sounds Musculoskeletal: No tenderness, deformity, or edema Neurologic: Awake, alert, and oriented x3, no gross focal neurologic deficits, cranial nerves intact as tested Psych: Mood and affect are appropriate Skin: No rashes Const: Vital Signs, click to edit/add: Vital Signs - 24 hr 08/28/24 17:10 Temperature 98.2 F Pulse Rate [Pulse Oximeter] 77 Respiratory Rate 18 Blood Pressure [Ri ght Upper Arm] 98/62 Pulse Oximetry 98 Oxygen Delivery Me thod Room Air Course Course ED Course: Reviewed most recent emergency department visit from August 17 which was for this same complaint, note the patient has had 4 other visits for this same complaint in the last couple of weeks. Last visit patient received fluids as well as Zofran and Pepcid. In the department, patient is finally stable with no tachycardia, blood pressure slightly low but expected for and body habitus, review of previous notes starting in July 2020 for shows that patient's weight is down approximately 9 lbs from initial weight of 125 lb. Patient with mild lower abdominal tenderness. Bedside ultrasound demonstrates intrauterine with movement and heart rate about 150. Labs ordered to evaluate for electrolyte disturbance, fluids and antiemetics initiated Reevaluation(s) Time of Reevaluation #1: 19:10 Reevaluation #1: Labs ordered and independently interpreted by me with normal basic panel, urinalysis with 4+ ketones and 1+ protein, no evidence for infection. Additional IV fluids are ordered and plan for discharge. Patient recheck, she is feeling better and should follow up with her floor layer apprentice. Vital Signs Vital signs: Initial Vital Signs Temperature 98.2 F 08/28/24 17:10 Temperature Source Temporal Artery Scan 08/28/24 17:10 Pulse Rate 77 08/28/24 17:10 Respiratory Rate 18 08/28/24 17:10 Blood Pressure 98/62 08/28/24 17:10 Blood Pressure Mean 74 08/28/24 17:10 Pulse Oximetry 98 08/28/24 17:10 Oxygen Delivery Method Room Air 08/28/24 17:10 Vital Signs Temperature 98.2 F 08/28/24 17:10 Pulse Rate 77 08/28/24 17:10 Respiratory Rate 18 08/28/24 17:10 Blood Pressure 98/62 08/28/24 17:10 Pulse Oximetry 98 08/28/24 17:10 Oxygen Delivery Method Room Air 08/28/24 17:10 Temperature 98.2 F 08/28/24 17:10 Pulse Rate 77 08/28/24 17:10 Respiratory Rate 18 08/28/24 17:10 Blood Pressure 98/62 08/28/24 17:10 Pulse Oximetry 98 08/28/24 17:10 Oxygen Delivery Method Room Air 08/28/24 17:10 Medications Administered Medications: Generic Name Dose Route Start Last Admin Trade Name Fawn PRN Reason Stop Dose Admin Lactated Ringer's 1,000 mls @ 1,000 mls/hr 08/28/24 19:10 08/28/24 19:11 Lactated Ringers 1000 Ml IV 08/28/24 20:09 1,000 mls/hr .Q1H LETY Administration Discontinued Medications Generic Name Dose Route Start Last Admin Trade Name Fawn PRN Reason Stop Dose Admin Lactated Ringer's 1,000 mls @ 1,000 mls/hr 08/28/24 17:35 08/28/24 19:04 Lactated Ringers 1000 Ml IV 08/28/24 18:34 Infused .Q1H LETY Infusion Ondansetron HCl 4 mg 08/28/24 17:34 08/28/24 17:44 Ondansetron 2 Mg/Ml Inj IVP 08/28/24 17:35 4 mg ONCE ONE Administration MDM - Nausea/Vomiting/Diarrhea Lab Data Labs: Lab Results 08/28/24 08/28/24 Range/Units 17:50 18:40 Sodium 134 L (135-149) mmol/L Potassium 3.7 (3.6-5.1) mmol/L Chloride 103 (96-114) mmol/L Carbon Dioxide 20 (20-32) mmol/L Anion Gap 11 (7-15) mEq/L BUN 9 (5-24) mg/dL Creatinine 0.4 L (0.5-1.5) mg/dL Estimated Creat Clear 186.39 Estimated GFR 144 ml/min Glucose 84 (60-115) mg/dL Calcium 9.4 (8.4-10.6) mg/dL Magnesium 2.1 (1.5-2.6) mg/dL Urine Color [place] A (Yellow) Urine Appearance Cloudy A (Clear) Urine pH 6.0 (5.0-8.5) Ur Specific [place] 1.025 (1.000-1.030) Urine Protein 1+ A (Negative) Urine Glucose (UA) Negative (Negative) Urine Ketones 4+ A (Negative) Urine Blood Trace-intact A (Negative) Urine Nitrite Negative (Negative) Urine Bilirubin 1+ A (Negative) Urine Urobilinogen 1.0 (0.2-1.0) Ur Leukocyte Esterase Negative (Negative) Urine RBC 0-2 (0-2) Urine WBC 0-2 (0-5) Ur Squamous Epith Cells Many A (None-Few) Amorphous Sediment Few A (None) Urine Bacteria Few A (None) Discharge Plan Discharge Clinical Impression: Nausea and vomiting during Patient Disposition: Home, Self-Care Condition: Stable Instructions: Nausea and Vomiting in (ED) Additional Instructions: Frequent small meals Call your floor layer apprentice tomorrow to discuss follow-up Prescriptions: No Action DHA 200 mg capsule PO PNV #58-[id number] acid-omega3 30 mg iron-10 mg iron-1 mg capsule 1 cap PO DAILY Qty: 90 3RF Unisom (doxylamine) 25 mg tablet 25 mg PO QHS PRN (Reason: nausea and vomiting) Qty: 90 3RF omeprazole 20 mg capsule,delayed release(DR/EC) 20 mg PO QDAY Qty: 90 2RF docusate sodium [Colace] 100 mg capsule 100 mg PO QDAY Qty: 90 2RF ondansetron HCl 4 mg tablet 4 mg PO Q6H PRN (Reason: nausea and vomiting) Qty: 30 0RF pyridoxine (vitamin B6) 25 mg tablet 25 mg PO TID Qty: 30 0RF doxylamine succinate 25 mg tablet 12.5 - 25 mg PO .daily-bid Qty: 30 0RF metoclopramide HCl [Reglan] 10 mg tablet 10 mg PO Q6H PRN (Reason: nausea and vomiting) Qty: 30 0RF Patient Comments: I have this but I dont take it because it makes me super sleepy PNV cmb#95-ferrous fumarate-FA [] 28 mg iron- 800 mcg tablet 1 tab PO DAILY Follow Up/Referrals: Provider,Not a Local [Non-Staff] - Stand Alone Forms: [employer] Info Instructions
[2024-08-28] MEDS: ONDANSETRON 2 MG/ML inj 4 MG IVP (17:44)
[2024-08-28] MEDS: LACTATED RINGERS 1000 ML 1,000 ML IV ×2 (17:45→19:11)
[2024-08-28 18:24] LABS: Chloride* 103 mmol/L (96-114); Potassium* 3.7 mmol/L (3.6-5.1); Sodium* 134 mmol/L (135-149)
[2024-08-28 18:26] LABS: Creatinine* 0.4 mg/dL (0.5-1.5); Est. Creatinine Clearance* 186.39; Estimated Glomerular Filt Rate 144 ml/min
[2024-08-28 18:27] LABS: Anion Gap 11 mEq/L (7-15); Blood Urea Nitrogen* 9 mg/dL (5-24); Calcium* 9.4 mg/dL (8.4-10.6); Carbon Dioxide* 20 mmol/L (20-32); Glucose* 84 mg/dL (60-115)
[2024-08-28 18:28] LABS: Magnesium* 2.1 mg/dL (1.5-2.6)
[2024-08-28 18:47] LABS: Appearance Urine Cloudy (Clear); Bilirubin Urine 1+ (Negative); Blood Urine Trace-intact (Negative); Color Urine Orange (Yellow); Glucose Urine Negative (Negative); Ketones Urine 4+ (Negative); Leukocyte Esterase Urine Negative (Negative); Nitrite Urine Negative (Negative); Protein Urine 1+ (Negative); Specific Gravity Urine 1.025 (1.000-1.030)
[2024-08-28 18:54] LABS: Amorphous Sediment Urine Few; Bacteria Urine Few; RBC Urine 0-2 (0-2); Squamous Epithelial Cell Urine Many (None-Few); WBC Urine 0-2 (0-5)
[2024-08-28 19:58] VITALS: BP 110/62; PULSE 90; RESP 18; O2SAT 100
== END 2024-08-28 20:03 | disposition home or self-care (01) ==
PROVIDERS: Emergency Provider Family Medicine; PCP Advanced Practice Midwife
DX: O21.9 Vomiting of pregnancy, unspecified (principal); Z3A.14 14 weeks gestation of pregnancy
CPT/HCPCS: 36415; 80048; 81001; 83735; 96361; 96374; 99284; J2405; J7120

== ENCOUNTER 2024-09-03 10:38 | Outpatient (CLI) | payer MEDICAID, SELFPAY | END 2024-09-03 10:39 | disposition home or self-care (01) | LOC: NFLDREF 10:39 | PROVIDERS: PCP Advanced Practice Midwife; Visit Provider Registered Nurse | DX: O21.0 Mild hyperemesis gravidarum (principal); R82.90 Unspecified abnormal findings in urine; Z3A.15 15 weeks gestation of pregnancy | CPT/HCPCS: 80048; 87086 ==

== ENCOUNTER 2024-09-16 14:30 | Outpatient (CLI) | payer MEDICAID, SELFPAY | END 2024-09-16 14:31 | disposition home or self-care (01) | PROVIDERS: PCP Advanced Practice Midwife; Referring Provider Advanced Practice Midwife; Visit Provider Registered Nurse | DX: R11.10 Vomiting, unspecified (principal) | CPT/HCPCS: 80048 ==

== ENCOUNTER 2024-10-07 10:59 | Outpatient (CLI) | payer MEDICAID, SELFPAY | END 2024-10-07 11:00 | disposition home or self-care (01) | LOC: US 10:59 | PROVIDERS: PCP Advanced Practice Midwife; Visit Provider Advanced Practice Midwife | DX: Z34.92 Encounter for supervision of normal pregnancy, unspecified, second trimester (principal); Z3A.20 20 weeks gestation of pregnancy | CPT/HCPCS: 76805; T1013 ==

== ENCOUNTER 2024-11-04 13:31 | Outpatient (CLI) | payer MEDICAID, SELFPAY | END 2024-11-04 13:32 | disposition home or self-care (01) | LOC: NFLDREF 13:31 | PROVIDERS: PCP Advanced Practice Midwife; Visit Provider Advanced Practice Midwife | DX: O21.9 Vomiting of pregnancy, unspecified (principal); Z3A.24 24 weeks gestation of pregnancy | CPT/HCPCS: 80053; 87086 ==

== ENCOUNTER 2024-12-02 10:45 | Outpatient (CLI) | payer MEDICAID, SELFPAY | END 2024-12-02 10:46 | disposition home or self-care (01) | LOC: NFLDREF 12-07 20:36 | PROVIDERS: PCP Advanced Practice Midwife; Referring Provider Advanced Practice Midwife; Visit Provider Advanced Practice Midwife | DX: Z34.03 Encounter for supervision of normal first pregnancy, third trimester (principal) | CPT/HCPCS: 86592 ==

== ENCOUNTER 2024-12-16 10:12 | Outpatient (CLI) | payer MEDICAID, SELFPAY ==
--- NOTE | 2024-12-16 10:15 | CRLHL7_ITS ---
For Patients: As a result of the Cures Act, medical imaging exams and procedure reports are released immediately into your electronic medical record. You may view this report before your referring provider. If you have questions, please contact your health care provider. OB ULTRASOUND LMP: 05/16/2024. PAYAL by LMP: 02/20/2025. GA: 30 w, 4 d. INDICATION: Supervision of normal first . TECHNIQUE: Real time kay scale imaging of the fetus was performed. Transabdominal. position: Vertex. Cervix: Not visualized. Technique: Transabdominal. Placenta position: Posterior. Amniotic Fluid: 4.6 cm SDP (greater than/equal to: 2- less than 8 cm). BPD: 7.6 cm. 30 w, 4 d, 38 percent. HC: 27.8 cm. 30 w, 3 d, 13 percent. AC: 25.5 cm. 29 w, 5 d, 21 percent. FL: 5.7 cm. 30 w, 0 d, 20 percent. FL/AC ratio: 22.37 percent. HC/AC ratio: 1.09. heart rate: 141 bpm. age by this US: 30 w, 1 d. PAYAL by this US: 02/23/2025. EFW: 1478 g. Weight: 3 lbs, 4 oz. Percentile by PAYAL: 19 percent. IMPRESSION: 1. Sonographic gestational age 30 weeks 1 day and sonographic due date 02/23/2025. Good correlation with dates. Normal interval growth. 2. Estimated weight 19th percentile. Abdominal circumference 21st percentile. German Rios M.D. Diagnostic Radiologist [email or web address] NÉSTOR/yonis JR/Dictated by: German Rios MD @ 12/17/2024 8:04:00 AM (Electronically Signed)
== END 2024-12-16 10:13 | disposition home or self-care (01) ==
LOC: US 10:12
PROVIDERS: PCP Advanced Practice Midwife; Visit Provider Advanced Practice Midwife
DX: Z34.03 Encounter for supervision of normal first pregnancy, third trimester (principal); Z3A.30 30 weeks gestation of pregnancy
CPT/HCPCS: 76816; T1013

== ENCOUNTER 2025-01-14 13:41 | Outpatient (CLI) | payer MEDICAID, SELFPAY ==
--- NOTE | 2025-01-14 13:45 | CRLHL7_ITS ---
For Patients: As a result of the Century Cures Act, medical imaging exams and procedure reports are released immediately into your electronic medical record. You may view this report before your referring provider. If you have questions, please contact your health care provider. PAYAL by US: 02/20/2025. GA: 34w, 5d. Single. INDICATION: Measuring small for dates. CERVIX: Not visualized. POSITIONING: Vertex. AMNIOTIC FLUID: 3.8 cm SDP. PLACENTA: Technique: Transabdominal. PLACENTA POSITION: Posterior. HEART RATE: 134 bpm. Biometry: BPD: 8.4 cm. 33w, 5d, 23 percent. HC: 30.9 cm. 34w, 3d, 13 percent. AC: 30.0 cm. 34w, 0d, 33 percent. FL: 6.3 cm. 32w, 4d, 5 percent. FL/AC ratio: 21.06 percent. HC/AC ratio: 1.03. EFW: 2233 g. Weight: 4 lbs, 15 oz. age by this US: 33w, 5d. PAYAL by this US: 02/27/2025. Percentile by PAYAL: 18 percent. IMPRESSION: 1. Sonographic gestational age 33 weeks 5 days and sonographic due date 02/27/2025. Sonographic age is 7 days behind the clinical age. 2. Estimated weight 18th percentile. Abdominal circumference 33rd percentile. German Rios M.D. Diagnostic Radiologist [email or web address] bM/Dictated by: German Rios MD @ 01/14/2025 4:10:00 PM (Electronically Signed)
== END 2025-01-14 13:42 | disposition home or self-care (01) ==
LOC: US 13:41
PROVIDERS: PCP Advanced Practice Midwife; Visit Provider Advanced Practice Midwife
DX: O36.5930 Maternal care for other known or suspected poor fetal growth, third trimester, not applicable or unspecified (principal); Z3A.33 33 weeks gestation of pregnancy
CPT/HCPCS: 76816; T1013

== ENCOUNTER 2025-01-28 14:40 | Outpatient (CLI) | payer MEDICAID, SELFPAY ==
[2025-01-29 13:04] LABS: Strep B DNA Probe POSITIVE (Negative)
[2025-01-29 13:17] LABS: Strep B Susceptibility Needed? No
== END 2025-01-28 14:41 | disposition home or self-care (01) ==
LOC: NFLDREF 14:41
PROVIDERS: PCP Advanced Practice Midwife; Visit Provider Advanced Practice Midwife
DX: Z34.03 Encounter for supervision of normal first pregnancy, third trimester (principal)
CPT/HCPCS: 87081; 87653

== ENCOUNTER 2025-01-31 16:15 | Inpatient (IN) | payer MEDICAID, SELFPAY ==
[2025-01-31] VITALS (10 sets, daily range): BP systolic 108–128; BP diastolic 60–83; PULSE 66–86; RESP 16; TEMP 36.4–37.1; O2SAT 98–99; BMI 21.2
[2025-01-31 16:10] LABS: Amnisure Rom* POSITIVE
--- NOTE | 2025-01-31 17:14 | P.OBHP_ITS ---
OB - H&P: HPI Labor/Induction History of Present Illness Date Seen: 01/31/25 Chief Complaint: Rekha is a 24 year old 1 para 0 at 37.1 weeks gestation by LMP, who presents with SROM of clear fluid this morning at 0900. Chief complaint: Maternity : 1 Para: 0 Date of last menstrual period: 05/16/24 Estimated date of delivery: 02/20/25 Gestational age based on last menstrual period: 37 Narrative: Rekha Valencia is a 24 year old female at 37.1 weeks who presented with SROM at 0900 today. she is [place] regularly on admission. OB H&P Gestational age: 37 weeks 1/7 days??? Patient's care began at 9 and 3/7 weeks gestation.? She is dated by first trimester US consistent with LMP.? EDC is 02/20/25.? She has had routine visits since that time.? IMAGING:??? 1st trimester: 1. Living IUP with gestational age of 9 weeks by today`s crown- rump length and EDC of 02/23/2025. 2. Apparent 1.6 x 1.2 x 0.9 cm subchorionic hemorrhage. Anatomy scan:? 1. Normal anatomic survey. 2. Concordance of clinical and sonographic dates. Others: 12/16/24: Sonographic gestational age 30 weeks 1 day and sonographic due date 12/24/2024. Good correlation with dates. Normal interval growth.2.Estimated fet al weight 19th percentile. Abdominal circumference 21st percentile.? 01/14/25 1.Sonographic gestational age 33 weeks 5 days and sonographic due date 02/27/2025. Sonographic age is 7 days behind the clinical age. 2.Estimated weight 18th percentile. Abdominal circumference 33rd percentile Specific Issues/Plans G 1 P 0 Single parent, patient mother is helping her; FOB not involved. Support person in labor will be her mom or brother. Discussed PHN referral 09/17/2023 and Regi. Pt declined house supervisor # Hyperemesis NOB: Phenergan, return for additional meds or possible IV fluids if not improving; seen in ED multiple times 08/19:Zofran 4 mg q 4 hours, Reglan 10 mg q 8 PRN, Omeprazole QD, Colace QD, Unisom HS, Vitamin B6 QD 09/03/24: K slightly low at 3.5. Recheck BMP in one week. Repeat 4.4, WNL Growth US at 30 weeks: 19th percentile Growth repeated at 34.5 wks: 18% # Varicella non immune. PP vaccine. # Rubella non immune. PP vaccine. # Weight loss due to hyperemesis, stable at 30 weeks Passed 1hr GTT 133 but was drawn 7 minutes late and pt did report spitting up small amount growth US in 3rd trimester-.12/16/24: Sonographic gestational age 30 weeks 1 day and sonographic due date 12/24/2024. Good correlation with dates. Normal interval growth.2.Es mated weight 19th percentile. Abdominal circumference 21st percentile. message sent to interpreters to see if she is willing to do some home blood sugar testing. Flu: Recommended. Declines Covid: Completed, not up-to-date. Recommended. Declines Tdap: Declines History of Present Dating criteria: based on LMP care: good care Ultrasounds: normal 1st trimester US and normal mid trimester US complications: hyperemesis Medical complications: none Labs Blood type: A (+) positive GBS status: positive Review of Systems Status of ROS: Reports: 10 or more systems reviewed and unremarkable except as noted in History and below Meds Home Medications and Allergies Home Medications ?Medication ?Instructions ?Recorded ?Confirmed ?Type docosahexaenoic acid 200 mg mg PO 07/21/24 01/28/25 Hi story capsule ( DHA) Held on 08/28/24. Instructions: Doctor's Order pyridoxine (vitamin B6) 25 mg 25 mg PO TID #30 tabs 01/28/25 Rx tablet doxylamine succinate 25 mg tablet 25 mg PO QHS PRN jeanne sea and 08/19/24 01/28/25 Rx (Unisom (doxylamine)) vomiting #90 tabs ondansetron HCl 4 mg tablet 4 mg PO Q6H PRN nausea and 08/19/24 01/28/25 Rx vomiting #30 tabs Allergies Allergy/AdvReac Type Severity Reaction Status Date / Time No Known Drug Allergies Allergy Verified 01/28/25 10:36 OB - H&P: Exam Physical Exam: Vital signs: Temp Pulse Resp BP Pulse Ox 98.8 F 69 16 108/64 98 01/31/25 15:41 01/31/25 15:43 01/31/25 15:41 01/31/25 15:43 01/31/25 15:43 Narrative: VSS? General Appearance:? Alert,?appropriate appearance?for age. No acute distress? HEENT Exam:? Grossly?normal.? Neck / Thyroid Exam:? Supple? Chest/Respiratory Exam: Normal respiratory effort, symmetrical chest wall rise. Clear to auscultation.? Cardiovascular Exam: Regular rate and rhythm. S1, S2, no murmur, click, gallop, or rubs.? Gastrointestinal Exam: non-tender,? Gravid??? Musculoskeletal Exam: Back is straight and non-tender, full ROM of upper and lower extremities.? Skin: no rash or abnormalities? Neurologic Exam: Normal gait and speech, no tremor.? Psychiatric Exam: Alert and oriented, appropriate affect.?? Ctx:? Q 2-5 min apart.? ? Moderate? ? FHTs:? Baseline: 125.? Variability: moderate.?? Accels: +.??? Decels:? -.? SVE: deferred at this time, RN attempted but pt did not tolerate. Consider nitrous use with next exam. ? Membranes: ? SROM at 0900 on 01/31/25, clear fluid?? OB - Problem Based A/P Additional Plan (1) SROM (spontaneous rupture of membranes): Status: Acute (2) Positive GBS test: Status: Acute (3) 37 weeks gestation of : Status: Acute (4) Pain during labor: Status: Acute (5) Low maternal weight gain: Status: Acute (6) Supervision of normal first : Status: Acute (7) Hyperemesis affecting , antepartum: Problem details: Weight loss of more than 5 lbs with dehydration and proteinuria Status: Resolved (8) Nausea and vomiting during : Status: Acute Plan Assessment:?? at 37.1 weeks gestation?? GBS positive? Patient is coping well with challenges of labor.?? Labor type: Spontaneous, Early labor? Category 1 FHR pattern.? complicated by: hyperemesis, low maternal weight gain, positive GBS status Plan:?? * ?Admit to L & D? * IV access: IV placed for antibiotics, may saline lock between doses * Monitoring per policy: intermittent? * Candidate for analgesia of choice.? Planning unmedicated waterbirth for pain management * Desires waterbirth.? Consent signed and Hep C negative * Expectant management at this time Reviewed risks and benefits of augmentation with Pitocin if labor is not progressing, engine designer present. * GBS prophylaxis initiated for GBS positive status. Will treat with antibiotics per protocol.? * Patient encouraged to reposition and ambulate to promote physiologic labor and . * Anticipate ? Delivery/Labor/Induction Plan Plan: expectant management
[2025-01-31] MEDS: AMPICILLIN 2 GM in 0.9 % SODIUM CHLORIDE Mini-bag 100 ML IVPB (17:31)
[2025-01-31] MEDS: LACTATED RINGERS 500 ML 500 ML 125 ML IV (17:33)
[2025-01-31 17:40] LABS: Basophils Absolute Auto 0.01 K/uL (0.00-0.30); Basophils Percent Auto 0.1 % (0.0-3.0); Eosinophils Absolute Auto 0.08 K/uL (0.00-0.50); Eosinophils Percent Auto 0.9 % (0.0-7.0); Hematocrit 35.7 % (33.0-51.0); Hemoglobin* 11.7 gm/dL (12.0-16.0); Immature Granulocytes Abs Auto 0.01 K/uL (0.00-0.30); Immature Granulocytes Pct Auto 0.1 %; Lymphocytes Absolute Auto 1.69 K/uL (0.90-2.90); Mean Corpuscular HGB Conc 33 gm/dL (32-36); Mean Corpuscular Hemoglobin 28 pg (26-34); Mean Corpuscular Volume 84 fL (80-100); Monocytes Percent Auto 5.3 % (0.0-11.0); Neutrophils Percent Auto 73.6 % (42.0-72.0); Platelet Count* 139 K/uL (140-440); RDW Coefficient of Variation % 12.8 % (11.5-15.5); Red Blood Count 4.24 m/uL (4.00-5.20); White Blood Count* 8.43 K/uL (4.50-11.00)
[2025-01-31 17:42] LABS: Slide Review Reflex No
--- NOTE | 2025-01-31 20:40 | PM.OBPNL ---
Subjective Date Seen: 01/31/25 Narrative: ?Rekha is coping well with labor pain/contractions. Her brother Dakota and friend Jessie are with her for support. ?She is uncomfortable with her contractions and has been up moving in her room. She was requesting a cervical exam at this time. She was offered Nitrous for the exam and attempted to get set up but equiptment was not working, she decided to go forward with exam without the Nitrous and tolerated a gentle slow exam well. Objective Exam: VSS, afebrile General Appearance:? Calm, cooperative. ?No acute distress. ? Psychiatric Exam: Alert and oriented, appropriate affect Abdomen: Gravid Ctx: ?Q 2-3 min apart. ? ?Moderate ? FHTs: Category I intermittently monitored SVE: / soft and posterior Membranes: ?SROM on 01/31/25 at 0900 continues to leak clear fluid Vital Signs: Last Vital Signs Temp 98.2 F 01/31/25 19:58 Pulse 86 01/31/25 19:58 Resp 16 01/31/25 15:41 BP 128/83 01/31/25 19:58 Pulse Ox 99 01/31/25 19:59 Plan Plan: Assessment:?? at 37.1 weeks gestation?? GBS positive Patient is coping well with challenges of labor.?? Labor type: Spontaneous, Early labor? Category 1 FHR pattern.? complicated by: hyperemesis, low maternal weight gain, positive GBS status Labor complicated by: PROM for 12 hours Plan:?? Reviewed IV Pitocin augmentation recommendation at this time. Pt agrees with this plan, IV Pitocin to start per protocol. Antibiotic prophylaxis treatment per protocol Continue with routine intrapartum cares as ordered.?? Patient encouraged to move and change positions to promote physiologic labor and .?? Nonpharmacologic comfort measures per patient preference. Candidate for analgesia of choice if desired. Patient planning waterbirth Anticipate progress to NVD. ?
[2025-01-31] MEDS: AMPICILLIN 1 GM in 0.9 % SODIUM CHLORIDE Mini-bag 100 ML IVPB (21:18)
[2025-01-31] MEDS: OXYTOCIN 30 unit/500 ML in NS 30 UNIT/500 ML BAG IVPB (21:29)
[2025-02-01] VITALS (89 sets, daily range): BP systolic 87–137; BP diastolic 49–87; PULSE 67–128; RESP 16; TEMP 36.4–37.3; O2SAT 93–99
[2025-02-01] MEDS: LACTATED RINGERS 1000 ML 1,000 ML 125 ML IV (01:18)
[2025-02-01] MEDS: AMPICILLIN 1 GM in 0.9 % SODIUM CHLORIDE Mini-bag 100 ML IVPB ×4 (01:18→13:40)
--- NOTE | 2025-02-01 01:42 | PM.OBPNL ---
Subjective Date Seen: 02/01/25 Narrative: ?Rekha is coping well with labor pain/contractions. ?Her mom and brother are with her for support. ?She is using breathing and relaxation for comfort and pain management and was recently in the tub/shower. She requested a cervical exam as she is feeling more pressure with contractions. ? Objective Exam: VSS, afebrile General Appearance:? Calm, cooperative. ?No acute distress. ? Psychiatric Exam: Alert and oriented, appropriate affect Abdomen: Gravid Ctx: ?Q 2-3 min apart. ? ? ?Strong FHTs: ?Baseline: 130. ? ? Variability: minimal. ?Accels: +. ? ?Decels: ?-. SVE: /+1 Membranes: ?SROM clear fluid on 01/31/25 at 0900, fluid remains clear Vital Signs: Last Vital Signs Temp 98 F 01/31/25 23:34 Pulse 78 02/01/25 01:41 Resp 16 01/31/25 15:41 BP 134/87 02/01/25 01:41 Pulse Ox 98 01/31/25 22:33 Contractions Pitocin Rate (mU/min): 4 Assessment Assessment: active labor Amniotic Membrane Status: SROM Status: Category l Plan Plan: Assessment:?? at 37.1 weeks gestation?? GBS positive, adequately treated Patient is coping well with challenges of labor.?? Labor type: Augmented, Active labor? Category 1 FHR pattern.? complicated by: hyperemesis, low maternal weight gain, positive GBS status Labor complicated by: PROM 16+ hrs Plan:?? Continue with IV Pitocin augmentation per protocol Antibiotic prophylaxis treatment per protocol Continue with routine intrapartum cares as ordered.?? Patient encouraged to move and change positions to promote physiologic labor and .?? Nonpharmacologic comfort measures per patient preference. Candidate for analgesia of choice if desired. Patient planning waterbirth Anticipate progress to NVD. ?
[2025-02-01] MEDS: fentaNYL 100 MCG/2 ML inj IVP (03:32)
--- NOTE | 2025-02-01 03:39 | PM.OBPNL ---
Subjective Date Seen: 02/01/25 Narrative: ?Rekha is struggling to relax between contractions. She had entered the waterbirth tub for a short time but was unable to relax between contractions and reported feeling weak so decided to get out of the tub. Early decelerations seen on the monitor so once out of the tub recommended we do an exam to check progress. ?She has a hard time relaxing with exams, earlier exam was likely of the external os as she is less dilated than previous exam. This was explained to her. She was offered pain management with Nitrous or IV pain meds, she is not interested in an epidural for this labor. She requested IV pain meds to help her cope and rest at this time. Objective Exam: VSS, afebrile General Appearance:? Calm, cooperative. ?No acute distress. ? Psychiatric Exam: Alert and oriented, appropriate affect Abdomen: Gravid Ctx: ?Q 2-3 min apart. ? ? ?Strong FHTs: ?Baseline: 125. ? ? Variability: moderate. ?Accels: -. ? ?Decels: ?periodic early decelerations. SVE: 4/80/+2 Membranes: ?SROM clear fluid on 01/31/25 at 0900, fluid remains clear Vital Signs: Last Vital Signs Temp 98.5 F 02/01/25 01:41 Pulse 78 02/01/25 01:41 Resp 16 01/31/25 15:41 BP 134/87 02/01/25 01:41 Pulse Ox 93 02/01/25 03:37 Contractions Pitocin Rate (mU/min): 4 Assessment Amniotic Membrane Status: SROM Status: Category l Plan Plan: Assessment:?? at 37.2 weeks gestation?? GBS positive, adequate treatment Patient is struggling to cope with challenges of labor.?? Labor type: Augmented, Early labor? Category 2 FHR pattern.? complicated by: hyperemesis, low weight gain, GBS positive Labor complicated by: PROM? Plan:?? IV pain medication and rest encouraged Antibiotic prophylaxis treatment per protocol Continue with routine intrapartum cares as ordered.?? Patient encouraged to move and change positions to promote physiologic labor and .?? Nonpharmacologic comfort measures per patient preference. Candidate for analgesia of choice if desired. Patient planning waterbirth Anticipate progress to NVD. ?
--- NOTE | 2025-02-01 05:18 | PM.OBPNL ---
Subjective Date Seen: 02/01/25 Narrative: ?Rekha is coping better with labor pain/contractions she just started using nitrous for pain management. There have been deep variables with contractions and minimal variability since she received IV pain medications around 0330. A FSE was placed and variables are resolved at this time but variability remains minimal without accelerations. ?Her mom is with her for support. ?Last exam found cervix now midposition 100% thin which is changed from previous exams. IV pitocin was turned off due to the variables and she was given a fluid bolus of 500ml. Objective Exam: VSS, afebrile General Appearance:? Calm, cooperative. ?No acute distress. ? Psychiatric Exam: Alert and oriented, appropriate affect Abdomen: Gravid Ctx: ?Q 2-4 min apart. ? ? ?Strong FHTs: ?Baseline: 130. ? ? Variability: minimal . ?Accels: -. ? ?Decels: ?variables with contractions. SVE: 4.5/100/+2 Membranes: ?SROM clear fluid on 01/31/25 at 0900 fluid remains clear Vital Signs: Last Vital Signs Temp 97.8 F 02/01/25 05:14 Pulse 88 02/01/25 05:14 Resp 16 01/31/25 15:41 BP 121/81 02/01/25 05:14 Pulse Ox 97 02/01/25 03:56 Contractions Pitocin Rate (mU/min): 0 Assessment Amniotic Membrane Status: SROM Status: Category l Plan Plan: Assessment:?? at 37.2 weeks gestation?? GBS positive Patient is coping well with challenges of labor.?? Labor type: Augmented, Early labor? Category 2 FHR pattern.? complicated by: hyperemesis, low weight gain, GBS positive Labor complicated by: PROM Plan:?? Antibiotic prophylaxis treatment per protocol Continue with routine intrapartum cares as ordered.?? Patient encouraged to move and change positions to promote physiologic labor and .?? Nonpharmacologic comfort measures per patient preference. Candidate for analgesia of choice if desired. Using nitrous for pain at this time Patient planning waterbirth Anticipate progress to NVD. ?
[2025-02-01] MEDS: LACTATED RINGERS 1000 ML 1,000 ML IV (06:21)
--- NOTE | 2025-02-01 06:33 | P.OBPN_ITS ---
Subjective Date Seen: 02/01/25 Narrative: ?Rekha is very uncomfortable with labor pain/contractions she has requested an epidural for her pain. Noted some bloody show and offered a cervical exam prior to the epidural placement, she declined an exam at this time. ?Her mom is with her for support. ?FHT now have moderate variability with variable and early decelerations, deep variables to 70-80's have resolved at this time. ?There is a credit collections manager at the bedside who has been present since approximately 0230. Objective Exam: VSS, afebrile General Appearance:? Calm, cooperative. ?No acute distress. ? Psychiatric Exam: Alert and oriented, appropriate affect Abdomen: Gravid Ctx: ?Q 2-3 min apart. ? ? ?Strong FHTs: ?Baseline:130 . ? ? Variability: moderate. ?Accels: -. ? ?Decels: ?early and variable. SVE: deferred at this time Membranes: ?SROM clear fluid since 01/31/25 at 0900, fluid remains clear Vital Signs: Last Vital Signs Temp 97.9 F 02/01/25 06:30 Pulse 86 02/01/25 06:30 Resp 16 01/31/25 15:41 BP 130/83 02/01/25 06:30 Pulse Ox 97 02/01/25 03:56 Contractions Pitocin Rate (mU/min): 0 Assessment Amniotic Membrane Status: SROM Plan Plan: Assessment:?? at 37.2 weeks gestation?? GBS positive, adequately treated Patient is coping with challenges of labor.?? Labor type: Augmented, Early labor? Category 2 FHR pattern.? complicated by: hyperemesis, low weight gain, GBS positive Labor complicated by: PROM Plan:?? Epidural placement by anesthesia Antibiotic prophylaxis treatment per protocol Continue with routine intrapartum cares as ordered.?? Patient encouraged to move and change positions to promote physiologic labor and .?? Anticipate progress to NVD. ?
[2025-02-01] MEDS: BUPIVACAINE 0.25% PF 10 ML 10 ML ML EPIDURAL (06:49)
[2025-02-01] MEDS: ROPIVACAINE 0.2% 100 ml 100 ML 12 MG EPIDURAL (06:57)
--- NOTE | 2025-02-01 07:02 | PM.ANBPRC ---
[facility] Social History Narrative: Cymro-speaking What is your current living situation?: I presently have a place to live Problems where you live: no known problems In the past 12 months, utilities in danger of being shut off: no In past 12 months, lack of transportation kept you from medical appts, meetings, work, or getting things needed for daily living: no In the past 12 mos, have been you worried that your food would run out before you had money to buy more?: never true In the past 12 mos, the food you bought just didn't last and you didn't have money to buy more?: never true Smoking Status: Never smoker Do you use any of these nicotine containing products: None Second hand tobacco smoke exposure: No How often do you have a drink containing alcohol: never How often do you have six or more drinks on one occasion: Never AUDIT-C Alcohol total score: 0 Non-prescribed substance use: denies use How often does anyone, including family, friends and others, physically hurt you: never How often does anyone, including family, friends and others, insult or talk down to you: never How often does anyone, including family, friends and others, threaten you with harm: never How often does anyone, including family, friends and others, scream or curse at you: never service: No Meds Home Medications and Allergies Home Medications ?Medication ?Instructions ?Recorded ?Confirmed ?Type docosahexaenoic acid 200 mg mg PO 07/21/24 01/28/25 History capsule ( DHA) Held on 08/28/24. Instructions: Doctor's Order pyridoxine (vitamin B6) 25 mg 25 mg PO TID #30 tabs 07/29/24 01/28/25 Rx tablet doxylamine succinate 25 mg tablet 25 mg PO QHS PRN nausea and 08/19/24 01/28/25 Rx (Unisom (doxylamine)) vomiting #90 tabs ondansetron HCl 4 mg tablet 4 mg PO Q6H PRN nausea and 08/19/24 01/28/25 Rx vomiting #30 tabs Allergies Allergy/AdvReac Type Severity Reaction Status Date / Time No Known Drug Allergies Allergy Verified 01/28/25 10:36 Results Labs Labs: Laboratory Results - last 24 hr 01/31/25 01/31/25 15:58 17:30 WBC 8.43 RBC 4.24 Hgb 11.7 L Hct 35.7 MCV 84 MCH 28 MCHC 33 RDW Coeff of Marni 12.8 Plt Count 139 L Neut % (Auto) 73.6 H Lymph % (Auto) 20.0 Mccracken % (Auto) 5.3 Eos % (Auto) 0.9 Baso % (Auto) 0.1 Neut # (Auto) 6.20 Lymph # (Auto) 1.69 Mccracken # (Auto) 0.40 Eos # (Auto) 0.08 Baso # (Auto) 0.01 Abs Immat Gran (auto) 0.01 Imm/Tot Granulo (auto) 0.1 Membrane Rupture POSITIVE Blood Type A Positive Antibody Screen NEGATIVE Vital Signs Vital Signs: Last Vital Signs Temp 97.9 F 02/01/25 06:30 Pulse 103 H 02/01/25 07:00 Resp 16 01/31/25 15:41 BP 117/72 02/01/25 07:00 Pulse Ox 97 02/01/25 06:59 Weight: 57.776 kg Height: 165.1 cm Anesthesia Procedures Epidural Insertion Patient Location: OB Start Time: 06:10 Stop Time: 07:00 Start Date: 02/01/25 Stop Date: 02/01/25 Reason for Block: procedure for pain Patient Position: sitting Performed By: Orlando Spivey Preanesthetic Checklist: IV checked, risks and benefits discussed, surgical consent, monitors and equipment checked, pre-op evaluation, timeout performed and anesthesia consent Prep: chlorhexidine gluconate Monitoring: blood pressure monitoring, continuous pulse oximetry and heart rate Approach: midline Vertebral Space: lumbar (1-5) Epidural Technique: ZAINAB saline Needle Type: Tuohy needle Injection Technique: continuous catheter Needle gauge: 17 Needle Length (cm): 10 cm Needle Insertion Depth (cm): 6 Catheter Gauge: 19 Catheter Type: multi-orifice Catheter at skin depth (cm): 12 Test Dose Result: negative and lidocaine 1.5% with epinephrine 1 to 200,000
[2025-02-01] MEDS: PHENYLEPHRINE 100 MCG/ML SYRINGE IVP ×2 (07:15→07:24)
--- NOTE | 2025-02-01 07:42 | P.OBPN_ITS ---
Subjective Time Seen by Provider: 07:20 Date Seen: 02/01/25 Narrative: Rekha is a 24 yo at 37 2/7 weeks gestation that presented yesterday with PROM that occurred at 9 am with clear fluid. She was expectantly managed for 12 hours, followed by Pitocin augmentation last night. It was turned off early this morning due to recurrent variable/late decelerations. She was coping well with contractions at that time with position changes and using the waterbirth tub. She has since received an epidural for pain management. She is feeling minimal discomfort at this time. Plan to recheck SVE with catheter placement and discuss restarting Pitocin. The call worker person MD was asked to be in house last night due to concerns with FHR. Will continue to closely monitor throughout the day. Objective Exam: Objective: Constitutional: Alert and oriented x3, mild distress, coping well Vital signs stable, see nurse documentation Abdomen: gravid, contractions palpate moderate/strong with contractions and soft between Cervix: 4 cm/100%/-2 station/vertex with last exam at 505 am NST: 125 bpm/moderate variability/15x15 accelerations present/early decelerations/contractions every 2-4 minutes Vital Signs: Last Vital Signs Temp 97.9 F 02/01/25 06:30 Pulse 81 02/01/25 07:42 Resp 16 01/31/25 15:41 BP 94/50 L 02/01/25 07:42 Pulse Ox 98 02/01/25 07:14 Contractions Pitocin Rate (mU/min): 0 Assessment Amniotic Membrane Status: SROM Status: Category l Plan Plan: ASSESSMENT:? 24 yo at 37.2 weeks gestation? complicated by:?hyperemesis, low weight gain Labor type: Spontaneous, Early labor? Category 2 FHR pattern with periods of Category I Labor complicated by: FHR concerns? GBS positive, adequately treated? ? PLAN:? 1. Routine intrapartum cares as ordered. Continue with expectant management. Will recheck cervix with catheter placement and consider augmentation with IV pitocin again at that time. 2. Monitoring per policy, continuous? 3. Comfortable with epidural in place. Continue with analgesia until delivery for control of pain. 4. Patient encouraged to reposition to promote physiologic labor and .? 5. GBS prophylaxis initiated for GBS positive status. Continue to treat with antibiotics per protocol. 6. MD workers' compensation claims supervisor aware of patient status. Management of labor to continue by CNM at this time. Will update as appropriate. 7. Anticipate ?
[2025-02-01] MEDS: ePHEDrine sulfate 5 MG/ML inj 10 MG IVP (07:59)
[2025-02-01] MEDS: LACTATED RINGERS 1000 ML 1,000 ML 925 ML IV (08:03)
--- NOTE | 2025-02-01 15:42 | W.PM.OBVAGDE ---
OB Procedure Vag Delivery Mother Details Mother Details: The patient is a 24 year-old, 1, now Para 1, admitted on 01/31/25 at 37.2 weeks gestation. : 1 Para: 1 Weeks Gestation: 37 Admission Date: 02/01/25 Additional Details Amniotic Membrane Status: SROM Amniotic Membrane Rupture Date: 01/31/25 Amniotic Membrane Rupture Time: 09:00 Amniotic Membrane Fluid Description: Clear Analgesia/Anesthesia Type: Epidural Waterbirth: No Pitcoin: Yes (Augmentation and AMTSL) Intrapartal Events: Labor Augmentation Delivery augmentation: pitocin Labor Onset: 06:00 Complete: 12:06 Pushin:25 Heart: heart tones during second stage were category II with variable decelerations that return to baseline and moderate variability during contractions. Reassuring for the entire pushing time with more notable Cat II tracing closer to anticipated delivery. Delivery Details Delivery Date: 02/01/25 Delivery Time: 15:11 Route of delivery: Gender: Male Viability: Alive; Heart Rate Present Position at Delivery: OA Delivery Details: Patient was admitted for PROM of clear fluid on 01/31 at 0900. She progressed on her own before Pitocin was started yesterday evening. It was stopped last night due to concern for tracing but this improved post-epidural and IV fluids. Pitocin was restarted this morning and she progressed to complete at 1206. Pushing was started at 1225 but patient had a very dense epidural and had a lot of difficulty finding where to push. After 1 hour of pushing, the epidural was turned off but it took over 1 hour for her to start to have any feeling. Her pushing was more adequate around the 2.5 hour curtis of pushing. of a viable male at 1511 in semi-fowlers on the bed. Vertex delivered OA. Nuchal cord x 1 easily reduced at perineum. No shoulder. Body delivered easily and without incident. passed to mothers abdomen with a vigorous cry. Cord was clamped and cut at > 5 minutes. APGARS were 8 at one minute and 9 at five minutes respectively. Mouth was bulb suctioned. Intact placenta with a 3 vessel cord delivered spontaneously at 1520. Fundus firm. 2nd degree perineal laceration identified and repaired in typical fashion. QBL 100 cc. Mother and baby stable; mother plans to breastfeed. Infant weight pending. 1 Minute Interval Total Score: 8 5 Minute Interval Total Score: 9 Additional Details Shoulder Dystocia: No Placenta Delivery Time: 15:20 Placental Delivery Description: Spontaneous Delivery repair: Vicryl Procedure Done: Global Blood Loss: 100 Laceration: Perineal - 2nd Degree Blood Loss Measurement Type: QBL Bakri Used: No Sponge/Need Count Correct: No Cord Vessel Description: 3 Vessels, Nuchal Cord and Reduced Event Summary Status: Mother and infant were stable after delivery. Disposition: floor
[2025-02-01] MEDS: IBUPROFEN 600 MG TABLET PO (18:30)
[2025-02-02] MEDS: ACETAMINOPHEN 500 MG TABLET 1000 MG PO ×3 (00:01→19:24)
[2025-02-02 04:18] VITALS: BP 103/67; PULSE 74; RESP 16; TEMP 37.1; O2SAT 98
[2025-02-02 06:30] LABS: Hemoglobin* 9.7 gm/dL (12.0-16.0)
[2025-02-02 07:00] VITALS: BP 101/63; PULSE 76; RESP 16; TEMP 36.6; O2SAT 98
[2025-02-02] MEDS: IBUPROFEN 600 MG TABLET PO ×2 (08:06→15:31)
--- NOTE | 2025-02-02 08:19 | PM.OBPNVD1 ---
OB - PN:Subj Subjective Date Seen: 02/02/25 Narrative: Rekha is a 24 year old who was admitted for ROM at term and proceeded to have a vaginal with a 2nd degree laceration that was repaired.The patient feels well.? The pain is well controlled with current medications.? She has no new complaints.? Urinary output is adequate and she is voiding without difficulty.? Has a good appetite, is tolerating a general diet, is passing flatus, and has not had a bowel movement.? Has small amount of rubra lochia.? She is ambulating well. She is and reports it is going well.? OB - PN: Obj Exam Physical Exam: Vital signs: Temp Pulse Resp BP Pulse Ox O2 Del Method 97.9 F 76 16 101/63 98 Room Air 02/02/25 07:00 02/02/25 07:00 02/02/25 04:18 02/02/25 07:00 02/02/25 07:00 02/02/25 07:00 Narrative: GENERAL APPEARANCE:? normal affect, alert, no distress MOOD:? appropriate CHEST:? clear to auscultation HEART:? regular rate and rhythm ABDOMEN:? soft, non-tender the uterine fundus is At Umbilicus, Midline and is appropriate for the stage of recovery. PERINEUM:? mild edema of the perineum, there is a Perineal Laceration,? that has mild edma, is well approximated and with no erythema EXTREMITIES:? normal and no edema OB - PN: Obj Data Labs Labs: Laboratory Results - last 24 hr 02/02/25 06:15 Hgb 9.7 L OB - PN: A/P Delivery Assessment and Plan (1) (normal spontaneous vaginal delivery): Status: Acute (2) Second degree perineal laceration: Status: Acute (3) care and examination of lactating mother: Status: Acute Plan Comments: PP day #1 Routine care May see as desired Anticipate discharge 02/03/2025
--- NOTE | 2025-02-02 09:14 | PM.ANPOST ---
Post Anesthesia Note Post Anesthesia Note Patient seen: Inpatient Respiratory Status: adequate Cardiovascular Status: adequate Mental Status: baseline Pain: adequate Temp: baseline Anesthetic awareness: N/A Complications: none Follow care: none
[2025-02-02] MEDS: DOCUSATE SODIUM 100 MG CAPSULE PO (10:00)
[2025-02-02 11:42] VITALS: BP 105/68; PULSE 80; RESP 16; TEMP 36.4; O2SAT 98
[2025-02-02 16:00] VITALS: BP 103/63; PULSE 75; RESP 20; TEMP 36.6; O2SAT 99
[2025-02-02 23:09] LABS: Rapid Plasma Reagin (RPR) Non Reactive (Non Reactive)
[2025-02-03 01:32] VITALS: BP 101/68; PULSE 71; RESP 16; TEMP 36.9; O2SAT 99
[2025-02-03 11:45] VITALS: BP 94/48; PULSE 70; RESP 16; TEMP 36.8; O2SAT 99
[2025-02-03] MEDS: DOCUSATE SODIUM 100 MG CAPSULE PO (11:49)
[2025-02-03] MEDS: FERROUS SULFATE 325 MG TABLET PO (11:49)
[2025-02-03] MEDS: LANOLIN CREAM 1 APPLIC TOPICAL (11:49)
--- NOTE | 2025-02-03 15:22 | P.DS_ITS ---
DS: Providers Provider Date Seen: 02/03/25 Date of admission: 01/31/25 16:15 Primary care physician: Deandra Alston CNM Admitting Clinician: Amarilys Villarreal CNM Consults: 01/31/25 15:41 Consult to [facility]er [CONS] Routine Comment: Reason for Consult:: Field Services Director Needed Attending Physician on discharge: Amarilys Villarreal CNM DS: Diagnosis Discharge Diagnosis (1) care and examination of lactating mother: Status: Acute (2) Second degree perineal laceration: Status: Acute (3) (normal spontaneous vaginal delivery): Status: Acute (4) Anemia, : Status: Acute Exam Narrative: Exam Narrative: GENERAL APPEARANCE:? normal affect, alert, no distress? MOOD:? appropriate? CHEST:? clear to auscultation and percussion? HEART:? regular rate and rhythm? ABDOMEN:? soft, non-tender the uterine fundus is U/2 and is appropriate for the stage of recovery.? PERINEUM:? mild edema of the perineum, there is a 2nd laceration that is healing well.? EXTREMITIES:? normal and no edema? Const: Vital Signs, click to edit/add: Vital Signs - 24 hr 02/02/25 16:00 02/03/25 01:32 02/03/25 11:45 Temperature 98 F 98.4 F 98.3 F Pulse Rate [Pulse Oximeter] 75 71 70 Respiratory Rate 20 16 16 Blood Pressure [Ri ght Arm] 103/63 101/68 94/48 L Pulse Oximetry 99 99 99 Oxygen Delivery Me thod Room Air Room Air Room Air Documenting provider has reviewed patient's vital signs: yes OB - DS: Summary Hospital Course Hospital Course: The patient is a 24 year old G 1 P 1 at 37.2 weeks gestation that was admitted to the Center on 01/31/25 for PROM. She had a vaginal delivery complicated but prolonged ROM. She delivered a viable male . She is breast feeding and feels it is going well. the patient has done well. Her pain is well controlled with current medications.? She has no new complaints.? Urinary output is adequate and she is voiding without difficulty.? Has a good appetite, is tolerating a general diet, is passing flatus, and has not had a bowel movement.? Has scant amount of rubra lochia.? She is ambulating well. She is not planning on anything for PP contraception as she is not currently in a relationship. Encouraged her to use condoms and see us for options if she starts a relationship. Peripartum Data delivery method: Vaginal Laceration description: Perineal - 2nd Degree complications: none [place] Gender: Male Discharge Plan: Home Status at Discharge Functional status at discharge: independent ambulation Overall status at discharge: patient is progressing back to baseline Time Spent with Patient Time attestation: Total time spent providing and/or coordinating discharge services: Discharge Plan Discharge Disposition: Home, Self-Care Date of Admission: 01/31/25 16:15 Attending Provider on Discharge: Annel Sharma Primary Care Provider: Deandra Alston Condition: Stable Anticipated Discharge Date/Time: 02/03/25 17:00 Discharge Medications: New docusate sodium 100 mg Capsule 100 mg PO DAILY Qty: 120 0RF Rx Instructions: Take 1-2 tablets daily as needed for constipation. ferrous sulfate 325 mg (65 mg iron) Tablet 325 mg PO Q48H Qty: 90 0RF Rx Instructions: Take 1 tablets every other day. ibuprofen 600 mg Tablet 600 mg PO Q6H PRNQty: 90 0RF Continued DHA 200 mg capsule 200 mg PO DAILY PRN Discontinued Unisom (doxylamine) 25 mg tablet 25 mg PO QHS PRN (Reason: nausea and vomiting) Qty: 90 3RF ondansetron HCl 4 mg tablet 4 mg PO Q6H PRN (Reason: nausea and vomiting) Qty: 30 0RF pyridoxine (vitamin B6) 25 mg tablet 25 mg PO TID Qty: 30 0RF Discharge Orders: Discharge Order (Routine); Ordered 02/03/25 Ordered By: Annel Sharma Patient Education: OB Vaginal/Breast Feeding Additional Instructions: Discharge instructions were reviewed with the patient including signs and symptoms of infection and home going medications.? Lifting Restrictions: 20 pounds for 6? weeks? ?? Do not drive while taking narcotic pain meds.? Off Work or School for 6 weeks.? ?? Symptoms to report to doctor:? -Bleeding that saturates more than one pad per hour? -Passing clots larger than the size of a golf ball? -Pain not relieved by prescribed medication? -Fever above 100.4 degrees Fahrenheit? -A foul vaginal odor? -Difficulty in emotions, mood and functions? -Thoughts of hurting yourself and/or ? -Painful, reddened area in your breast? -Any drainage, redness or tenderness in your IV/epidural site? -Severe headache that doesn't improve after taking medications? -Changes in vision, including temporary loss of vision, blurred vision, and/or light sensitivity? -Upper abdominal pain (usually under ribs on the right side)? -Decrease in urination or painful, frequent urinating? -Chest pain? -Shortness of breath? -Tenderness or pain with redness and/swelling in the calf(s) of your leg? ?? Follow Up in clinic in 2 and 6 weeks.? ?? consultation services are available to all mothers and babies for the first year after delivery.? To make an appointment, please call [phone].? Activity Level: Activity as Tolerated Discharge Diet: Regular Follow Up Appointments: [facility] [Provider Group] Forms: MyHealth Info Instructions
== END 2025-02-03 16:23 | disposition home or self-care (01) | DRG 807 ==
LOC: OB OUT 16:22 → OB 16:22
PROVIDERS: Admitting Provider Advanced Practice Midwife; PCP Advanced Practice Midwife; Visit Provider Advanced Practice Midwife
DX: O42.12 Full-term premature rupture of membranes, onset of labor more than 24 hours following rupture (principal); Z37.0 Single live birth; O99.824 Streptococcus B carrier state complicating childbirth; O70.1 Second degree perineal laceration during delivery; O26.13 Low weight gain in pregnancy, third trimester; O21.0 Mild hyperemesis gravidarum; O90.81 Anemia of the puerperium; D64.9 Anemia, unspecified; Z3A.37 37 weeks gestation of pregnancy
CPT/HCPCS: 01967; 36415; 76815; 84112; 85018; 85025; 86592; 86850; 86900; 86901; T1013; A9270; J0290; J0665; J2795; J3010; J7120